=== PATIENT | male | born 1970 | race Caucasian/White ===

== ENCOUNTER 2024-05-11 18:53 | Inpatient (IN) | payer BC, SELFPAY ==
[2024-05-11 18:54] VITALS: BP 146/87; PULSE 82; RESP 16; TEMP 36.5; O2SAT 98; BMI 27.6
[2024-05-11 20:13] LABS: Absolute Lymphocyte Count 0.65 X10^3/uL (0.83-4.51); Absolute Neutrophil Count 8.4 X10^3/uL (2.0-7.7); Basophil# 0.02 X10^3/uL; Basophil% 0.2 % (0-1); Eosinophil# 0.04 X10^3/uL; Eosinophils% 0.4 % (0-5); Hematocrit 50.7 % (40-54); Hemoglobin 17.4 g/dL (13.0-16.5); Lymphocyte # 0.65 X10^3/ul (0.83-4.51); Lymphocyte % 6.7 % (19-41); Mean Corp Hgb Conc 34.3 g/dL (32-36); Mean Corpuscular Hgb 29.1 pg (27.0-32.0); Mean Corpuscular Volume 84.9 fL (80-94); Mean Platelet Vol. 9.2 fl (6.2-12.0); Monocyte# 0.61 X10^3/uL; Monocyte% 6.3 % (0-10); NRBC Flagged by Analyzer 0 % (0-5); Platelet Count 250 K/mm3 (150-450); RBC Distribution Width CV 13.4 % (11.6-14.6); RBC Distribution Width SD 41.7 fl (35.1-43.9); Red Blood Count 5.97 M/mm3 (4.6-6.2); White Blood Count 9.8 K/mm3 (4.4-11.0)
[2024-05-11 20:31] LABS: Color, Urine Amber (Yellow); Glucose, Dipstick Normal (Normal); Ketone-Dipstick 50 mg/dl (Negative); Leukocyte Esterase-Dipstick 25 /ul (Negative); Nitrite-Dipstick Negative (Negative); Occult Blood-Urine 10 /ul (Negative); Protein-Dipstick 15 mg/dl (Negative); Red Blood Cells-Urine 0 SEEN /hpf (0-5); Specific Gravity, Urine 1.025 (1.002-1.030); Urine Clarity Clear (Clear); Urine Urobilinogen 8 mg/dl (Normal)
[2024-05-11 20:41] LABS: Urine Bilirubin Dipstick 3 mg/dL (Negative)
[2024-05-11 20:43] LABS: Bacteria 1+ /hpf (None Seen); Mucous, Urine 1+ /hpf (<or=2+); White Blood Cells 0-5 SEEN /hpf (0-5)
[2024-05-11 20:44] LABS: Squamous Epithelial Cells - UA 0-5 SEEN /hpf (0-5)
[2024-05-11 20:54] VITALS: BP 141/88; PULSE 62
[2024-05-11 20:57] LABS: Glucose 138 mg/dL (74-106)
[2024-05-11 20:58] LABS: ALB/GLOB Ratio 1.3 RATIO (0.9-2.4); AST(SGOT) 184 U/L (15-37); Alanine Aminotransfer ALT/SGPT 596 U/L (16-61); Albumin, Serum 4.5 g/dL (3.2-5.0); Alkaline Phosphatase 73 U/L (45-117); BUN 20 mg/dL (7-18); Calcium,Total 9.9 mg/dL (8.5-10.1); Chloride 105 mmol/L (98-107); Creatinine, Serum 1.05 mg/dL (0.70-1.30); EST Glomerular Filtration Rate 78 mL/min (>60); Est Glom Filt Rate - Afr Amer 95 mL/min (>60); Estimated Creatinine Clearance 87.25 ml/min; Globulin 3.4 g/dL (2.2-4.2); Potassium 4.6 mmol/L (3.5-5.1); Protein, Total 7.9 g/dL (6.4-8.2); Sodium Level 140 mmol/L (136-145)
[2024-05-11 20:59] LABS: Anion Gap 8 (5-15)
--- NOTE | 2024-05-11 21:10 | US_ITS ---
EXAM: US ABDOMEN LIMITED, RIGHT UPPER QUADRANT CLINICAL INDICATION: Pain, elevated bilirubin, transaminitis TECHNIQUE: Real-time ultrasound of the right upper quadrant with image documentation. COMPARISON: No relevant prior studies available. FINDINGS: LIVER: Liver measures 16 point centimeters in length. Echogenic/fatty liver. Largest cysts measure 2.4 cm and 1.6 cm. No solid masses. No intrahepatic biliary ductal dilation. GALLBLADDER: Sonographic Dominguez''s sign is absent. Multiple gallstones are identified. There is evidence of adenomyomatosis. No pericholecystic fluid. Gallbladder wall measures 0.11 cm. COMMON BILE DUCT: Common bile duct measures 5 mm. The proximal common bile duct is within normal limits for the patient''s age. PANCREAS: Visualized portions of the pancreas are unremarkable. Note that the head and tail are not well visualized. RIGHT KIDNEY: Unremarkable. There is no hydronephrosis. No shadowing calculus. No focal lesion or perinephric collection is demonstrated. Right kidney is normal. FREE FLUID: No ascites or masses. US/Gallbladder IMPRESSION: 1. Cholelithiasis and gallbladder wall thickening but no definite acute cholecystitis. 2. Hepatic steatosis suggested. Electronically Signed: Vaibhav Alvarez MD at 22:56 EST ,
--- NOTE | 2024-05-11 21:29 | EDS_ITS ---
HPI HPI - GI History of Present Illness Chief Complaint: Abd Pain Informant: patient Narrative Narrative: Patient is 54-year-old male with history of regular tobacco and prior appendectomy presenting with worsening abdominal pain with nausea and vomiting. Patient states he has had ongoing issues of pain in his upper abdomen. He states normally he take Pepto-Bismol and his symptoms will go away after about 3 hours. He notes that yesterday morning about 2 hours after eating breakfast at home fries, eggs and bowen he had an attack of his pain. He states this is unusual in itself because he usually has pain in the evenings. The pain came back today and is persistent. He notes the night before the big breakfast he ate pizza. Today he had raisin bran and then had vomiting. He has had burning pain in his upper abdomen or upper quadrant that radiates to his back. He feels bloated. Denies any blood in his vomit. States he did not have a bowel movement today. Has never had an EGD or colonoscopy. Has never had this pain e valuated further. Does not take a daily antacid. No fevers reported. No other complaints or concerns reported at this time. Patient denies any alcohol or illicit drug use. PFSH PFS Home Medications ?Medication ?Instructions ?Recorded ?Last Taken ?Type NK 05/12/24 Unknown History Allergy/AdvReac Type Severity Reaction Status Date / Time No Known Allergies Allergy Verified 05/11/24 18:56 Family History no significant family his Surgical History History of appendectomy Social History household members: spouse housing: house Smoking Status: Never smoker ROS ROS ED Constitutional Constitutional ED: Denies chills or fever(s) Gastrointestinal Gastrointestinal: Reports abdominal pain, nausea and vomiting Musculoskeletal Musculoskeletal: Reports back pain; Denies arthralgias or myalgias Integumentary Denies rash Neurologic Neurologic: Denies weakness EXAM Physical Exam Const Vital Signs: 05/11/24 18:54 05/11/24 20:54 05/11/24 22:00 Temperature 97.7 F L Temperature Source Oral Pulse Rate 82 62 Respiratory Rate 16 Blood Pressure 146/87 H 141/88 H 148/85 H Blood Pressure Mean 106 105 106 Pulse Ox 98 Oxygen Delivery Method Room Air 05/12/24 00:00 05/12/24 00:04 Temperature 98.7 F 98.7 F Temperature Source Oral Pulse Rate 98 98 Respiratory Rate 18 18 Blood Pressure 144/87 H 144/87 H Blood Pressure Mean 106 106 Pulse Ox 99 99 Oxygen Delivery Method Room Air Positive well nourished and well developed General Appearance ED: well developed; Negative for pallor HEENT Reports moist mucous membranes Eyes PERRL Neck supple Resp normal respiratory effort and clear to auscultation bilaterally Cardio regular rate and regular rhythm GI non-distended Auscultation: hypoactive bowel sounds Palpation: soft and tender epigastric, RUQ and Dominguez's sign; Negative for guarding or rigid Extremity full ROM General Extremety ED: Negative for edema General Extremity: Negative for edema Neuro Sensorium / Orientation: alert, oriented to person, oriented to place and oriented to time Motor Exam: Negative for general weakness Psych mental status grossly normal and thought process normal Skin General Skin Exam: Negative for jaundice or pallor MDM MDM MDM Narrative Medical decision making narrative: Patient's evaluated for worsening upper abdominal pain. Is now having nausea and vomiting with it. Differential includes cholecystitis, pancreatitis, choledocholithiasis, biliary colic, small bowel obstruction, gastritis and peptic ulcer disease. Protocol labs obtained including CBC, CMP and urinalysis. Lipase is added on. CBC largely normal however his CMP shows an elevation of his total bilirubin, AST, and ALT which is concerning for possible obstructive biliary pathology. Lipase is pending at this time. Right upper quadrant ultrasound is ordered as well as morphine and Zofran for symptom control. Will keep n.p.o. at this time. Lipase is significant elevated at greater than 250. Ultrasound shows cholelithiasis and gallbladder wall thickening but no definite acute cholecystitis. CT of abdomen pelvis is added on for concern of now gallstone pancreatitis. Discussed his clinical picture. Patient does require further morphine for pain control. Will be started on IV fluids in the ER. Case is discussed with Dr. Box, general surgery on-call. He is agreeable with this plan recommend starting Zosyn. Request admission to medicine service and GI consult as well. Patient will be admitted to medicine service and case discussed with hospitalist, Dr. Powers. Patient is agreeable this plan of care. Remains hemodynamically stable emergency room. Lab Data Attestation: I reviewed the patient's lab results. Labs: Laboratory Results - last 24 hr 05/11/24 05/11/24 20:03 20:07 WBC 9.8 RBC 5.97 Hgb 17.4 H Hct 50.7 MCV 84.9 MCH 29.1 MCHC 34.3 RDW Std Deviation 41.7 RDW Coeff of Judy 13.4 Plt Count 250 MPV 9.2 Immature Gran % (Auto) 0.400 Neut % (Auto) 86.0 H Lymph % (Auto) 6.7 L [place] % (Auto) 6.3 Eos % (Auto) 0.4 Baso % (Auto) 0.2 Absolute Neuts (auto) 8.4 H Absolute Lymphs (auto) 0.65 L Nucleated RBC % 0 Sodium 140 Potassium 4.6 Chloride 105 Carbon Dioxide 27.0 Anion Gap 8 BUN 20 H Creatinine 1.05 Estim Creat Clear Calc 87.25 Est GFR (MDRD) Af Amer 95 Est GFR (MDRD) Non-Af 78 BUN/Creatinine Ratio 19.0 Glucose 138 H Calcium 9.9 Total Bilirubin 3.70 H AST 184 H ALT 596 H Alkaline Phosphatase 73 Total Protein 7.9 Albumin 4.5 Globulin 3.4 Albumin/Globulin Ratio 1.3 Lipase > 250 H Urine Color Richa Urine Clarity Clear Urine pH 5.0 Ur Specific Pierce 1.025 Urine Protein 15 H Urine Glucose (UA) Normal Urine Ketones 50 H Urine Occult Blood 10 H Urine Nitrite Negative Urine Bilirubin 3 H Urine Urobilinogen 8 H Ur Leukocyte Esterase 25 H Urine RBC 0 SEEN Urine WBC 0-5 SEEN Ur Squamous Epith Cells 0-5 SEEN Urine Bacteria 1+ Urine Mucus 1+ Radiography Diagnostic Testing: Clinical Impression(s) from Imaging Studies Gallbladder Ultrasound 05/11/24 21:10 IMPRESSION: 1. Cholelithiasis and gallbladder wall thickening but no definite acute cholecystitis. 2. Hepatic steatosis suggested. Electronically Signed: Vaibhav Alvarez MD at 22:56 EST , Discharge Plan Dx/Rx/DC Orders Clinical Impression: Acute gallstone pancreatitis, Elevated bilirubin, Abdominal pain, acute, epigastric Disposition Disposition: [facility]
[2024-05-11] MEDS: Ondansetron 4 MG/2 ML Vial IV (21:38)
[2024-05-11] MEDS: morphine 8 MG/ML Syringe 6 MG IV (21:38)
[2024-05-11 21:48] LABS: Lipase > 250 U/L (13-75)
[2024-05-11 22:00] VITALS: BP 148/85
--- NOTE | 2024-05-11 22:44 | CT_ITS ---
EXAM: CT ABDOMEN AND PELVIS WITH INTRAVENOUS CONTRAST CLINICAL INDICATION: Pain, elevated lipase TECHNIQUE: Helically acquired images were obtained of the abdomen and pelvis with intravenous contrast. CTDIvol = ( 19.53 ) mGy, DLP = ( 1342.79 ) mGycm This CT exam was performed using one or more of the following dose reduction techniques: automated exposure control, adjustment of the mA and/or kV according to patient size, and/or use of iterative reconstruction technique. CONTRAST: IV 100mL Isovue-370 COMPARISON: No relevant prior studies available. FINDINGS: LOWER THORAX: Dependent atelectasis at the posterior lower lobes. ABDOMEN: LIVER: Scattered hepatic cysts. GALLBLADDER AND BILE DUCTS: Distended gallbladder. Cholelithiasis. No acute cholecystitis. No intra- or extrahepatic biliary ductal dilation. PANCREAS: Edematous pancreatic parenchyma with adjacent stranding. No focal cystic or solid mass. No peripancreatic collections. SPLEEN: Unremarkable. Normal size without focal cystic or solid mass. ADRENALS: Unremarkable. No nodules. KIDNEYS AND URETERS: Unremarkable. Normal renal size and position. No hydronephrosis. STOMACH AND BOWEL: Diverticulosis but no acute diverticulitis. No bowel obstruction. No colitis. PELVIS: APPENDIX: No evidence of acute appendicitis. BLADDER: Unremarkable. REPRODUCTIVE: Unremarkable as visualized. No mass. ABDOMEN and PELVIS: INTRAPERITONEAL SPACE: Unremarkable. No ascites or other fluid collection. No free air. 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 No suspicious lytic or blastic abnormality. SOFT TISSUES: Unremarkable. No discrete abdominal or pelvic wall hernia. VASCULATURE: Unremarkable. Abdominal aorta is non-dilated. LYMPH NODES: Unremarkable. No enlarged lymph nodes. CT/Abdomen/Pelvis W IV Cont ONLY IMPRESSION: Acute pancreatitis without complications. Electronically Signed: Vaibhav Alvarez MD at 0:23 EST ,
--- NOTE | 2024-05-11 23:54 | HP.PCM.HOS_ITS ---
[facility] - General General Date of Admission: 05/12/24 Date of Service: 05/11/24 Chief Complaint: Abdominal Pain, Nausea and Vomiting. HPI Narrative KIMBERLEE NAVARRO, is a 54 M with a past medical history of tobacco abuse, being overweight; with BMI of 27.7 this admission, history of appendectomy and chronic intermittent postprandial abdominal pain that is typically most active in the evenings who presents to [facility] ER complaining of abdominal pain, nausea and vomiting. Mr. Navarro reports his symptoms began approximately one day prior to admission after he ate a large breakfast with subsequent severe abdominal pain that was burning, focused in his upper abdomen and radiating into his back. He also noted abdominal bloating followed by nausea and vomiting with no BM for the past ~24 hours. He states he normally takes Pepto-Bismol and the symptoms resolve after ~3 hours - but not this time. Earlier today he reports eating Raisin Bran cereal and then he developed severe nausea followed by bilious emesis. He denies blood in stools or vomitus. He asserts he has never underwent an EGD or colonoscopy. He denies associated fever, chills, diarrhea, history of EtOH abuse, chest pain or SOB. In the ER he was noted to have CT evidence of cholelithiasis and gallbladder wall thickening with no definite acute cholecystitis along with hepatic steatosis along with laboratory evidence of hyperbilirubinemia of 3.7 mg/dL with AST 184 U/L and ALT 596 U/L with an elevated serum lipase > 250 U/L consistent with suspected Acute Gallstone Pancreatitis complicated by clinical evidence of Intractable Abdominal Pain with Nausea and Vomiting and he was then admitted to the general medical floor for ongoin care for a stay that is expected to extend beyond 2 midnights. [facility] Home Medications ?Medication ?Instructions ?Recorded ?Last Taken ?Type NK 05/12/24 Unknown History Allergy/AdvReac Type Severity Reaction Status Date / Time No Known Allergies Allergy Verified 05/11/24 18:56 Family History no significant family his Surgical History History of appendectomy Social History household members: spouse housing: house Smoking Status: Current every day smoker tobacco type: cigarettes ROS ROS Narrative Review of Systems: Constitutional: Patient denies fever or chills. Eyes: Patient denies changes in vision or discharge from eyes. ENT: Patient denies runny nose, sore throat or ear pain. Resp: Patient denies SOB or cough. CV: Patient denies chest pain, palpitations or heart racing. GI: Patient admits to severe burning abdominal pain with nausea and vomiting with bilious emesis as per HPI. : Patient denies dysuria or hematuria. MSK: Patient admits to back pain but he denies arthralgias or myalgias. Skin: Patient denies rash or abscess. Psych: Patient denies symptoms of uncontrolled depression or anxiety. Neuro: Patient denies headache, paresthesias or focal neurologic deficits. Allergy: Patient denies lip swelling, tongue swelling or urticaria. Hematology: Patient denies easy bleeding or easy bruisability. Endocrinology: Patient denies polyuria, polydipsia or polyphagia. 14 point ROS otherwise negative except for positives noted above. Vital Signs Vital Signs Vital Signs: 05/11/24 18:54 05/11/24 20:54 05/11/24 22:00 Temperature 97.7 F L Temperature Source Oral Pulse Rate 82 62 Respiratory Rate 16 Blood Pressure 146/87 H 141/88 H 148/85 H Blood Pressure Mean 106 105 106 Pulse Ox 98 Oxygen Delivery Method Room Air Weight Weight: 204 lb 1.6 oz Body Mass Index (BMI) 27.6 Physical Exam Const alert, oriented x3 and average body habitus Constitutional Narrative: [id number] discomfort noted. General Appearance: cooperative HEENT normocephalic, head/scalp atraumatic, hearing grossly normal bilaterally and moist oral mucous membranes Eyes PERRL and EOMs intact bilaterally Neck no lymphadenopathy and supple Resp normal respiratory effort, no retractions, no use of accessory muscles and clear to auscultation bilaterally Cardio regular rate and regular rhythm GI soft to palpation GI Narrative: Patient is TTP over the epigastrium. Auscultation: hypoactive bowel sounds Extremity normal to inspection, full ROM and no clubbing, cyanosis or edema Skin Skin Narrative: Patient has no evidence of rash, abscess or jaundice at this time. Neuro oriented x3, CN's II-XII intact bilaterally, moves all extremities and no focal motor deficits Sensorium / Orientation: awake, alert, oriented to person, oriented to place and oriented to time Speech: speech normal Psych affect normal Results Medical Records Data Attestation: I reviewed the patient's medical records Lab / Micro Data Attestation: I reviewed the patient's lab results. 05/11/24 20:03 05/11/24 20:03 Labs: Laboratory Results - last 24 hr 05/11/24 20:03: WBC 9.8, RBC 5.97, Hgb 17.4 H, Hct 50.7, MCV 84.9, MCH 29.1, MCHC 34.3, RDW Std Deviation 41.7, RDW Coeff of Judy 13.4, Plt Count 250, MPV 9.2, Immature Gran % (Auto) 0.400, Neut % (Auto) 86.0 H, Lymph % (Auto) 6.7 L, [place] % (Auto) 6.3, Eos % (Auto) 0.4, Baso % (Auto) 0.2, Absolute Neuts (auto) 8.4 H, Absolute Lymphs (auto) 0.65 L, Nucleated RBC % 0, Sodium 140, Potassium 4.6, Chloride 105, Carbon Dioxide 27.0, Anion Gap 8, BUN 20 H, Creatinine 1.05, Estim Creat Clear Calc 87.25, Est GFR (MDRD) Af Amer 95, Est GFR (MDRD) Non-Af 78, BUN/Creatinine Ratio 19.0, Glucose 138 H, Calcium 9.9, Total Bilirubin 3.70 H, AST 184 H, ALT 596 H, Alkaline Phosphatase 73, Total Protein 7.9, Albumin 4.5, Globulin 3.4, Albumin/Globulin Ratio 1.3, Lipase > 250 H 05/11/24 20:07: Urine Color Richa, Urine Clarity Clear, Urine pH 5.0, Ur Specific [place] 1.025, Urine Protein 15 H, Urine Glucose (UA) Normal, Urine Ketones 50 H, Urine Occult Blood 10 H, Urine Nitrite Negative, Urine Bilirubin 3 H, Urine Urobilinogen 8 H, Ur Leukocyte Esterase 25 H, Urine RBC 0 SEEN, Urine WBC 0-5 SEEN, Ur Squamous Epith Cells 0-5 SEEN, Urine Bacteria 1+, Urine Mucus 1+ Imaging Radiology Impression Gallbladder Ultrasound 05/11/24 21:10 IMPRESSION: 1. Cholelithiasis and gallbladder wall thickening but no definite acute cholecystitis. 2. Hepatic steatosis suggested. Electronically Signed: Vaibhav Alvarez MD at 22:56 EST , - [facility] Imaging Services [address] [place] [address] [id number] Abdomen/Pelvis W IV Cont ONLY MR#: [id number] Acct: [id number] Name: KIMBERLEE NAVARRO Rep #: [id number] : 1970 M 54 From: Vaibhav Alvarez MD PCP: Dr. Ifeanyi Laurent MD Status: ADM IN Study: Abdomen/Pelvis W IV Cont ONLY Date of Exam: 05/11/24 Exam# [id number] Ordering Dr: Joelle Albright DO EXAM: CT ABDOMEN AND PELVIS WITH INTRAVENOUS CONTRAST CLINICAL INDICATION: Pain, elevated lipase TECHNIQUE: Helically acquired images were obtained of the abdomen and pelvis with intravenous contrast. CTDIvol = ( 19.53 ) mGy, DLP = ( 1342.79 ) mGycm This CT exam was performed using one or more of the following dose reduction techniques: automated exposure control, adjustment of the mA and/or kV according to patient size, and/or use of iterative reconstruction technique. CONTRAST: IV 100mL Isovue-370 COMPARISON: No relevant prior studies available. FINDINGS: LOWER THORAX: Dependent atelectasis at the posterior lower lobes. ABDOMEN: LIVER: Scattered hepatic cysts. GALLBLADDER AND BILE DUCTS: Distended gallbladder. Cholelithiasis. No acute cholecystitis. No intra- or extrahepatic biliary ductal dilation. PANCREAS: Edematous pancreatic parenchyma with adjacent stranding. No focal cystic or solid mass. No peripancreatic collections. SPLEEN: Unremarkable. Normal size without focal cystic or solid mass. ADRENALS: Unremarkable. No nodules. KIDNEYS AND URETERS: Unremarkable. Normal renal size and position. No hydronephrosis. STOMACH AND BOWEL: Diverticulosis but no acute diverticulitis. No bowel obstruction. No colitis. PELVIS: APPENDIX: No evidence of acute appendicitis. BLADDER: Unremarkable. REPRODUCTIVE: Unremarkable as visualized. No mass. ABDOMEN and PELVIS: INTRAPERITONEAL SPACE: Unremarkable. No ascites or other fluid collection. No free air. 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 No suspicious lytic or blastic abnormality. SOFT TISSUES: Unremarkable. No discrete abdominal or pelvic wall hernia. VASCULATURE: Unremarkable. Abdominal aorta is non-dilated. LYMPH NODES: Unremarkable. No enlarged lymph nodes. CT/Abdomen/Pelvis W IV Cont ONLY IMPRESSION: Acute pancreatitis without complications. Electronically Signed: Vaibhav Alvarez MD at 0:23 EST , CC: Dr. Joelle Albright, DO; Dr. Ifeanyi Laurent MD ~ Catalogue Clerk: Signed Assessment & Plan Assessment/Plan (1) Acute gallstone pancreatitis: (2) Elevated bilirubin: (3) Transaminitis: (4) Intractable abdominal pain: (5) Intractable nausea and vomiting: (6) Tobacco abuse: (7) Polycythemia: (8) Overweight (BMI 25.0-29.9): PLAN: Plan 1. Acute Gallstone Pancreatitis - Admit to general medical floor. Keep strict NPO and start Protonix IV. Give Zofran IV prn nausea and vomiting. Give Toradol IV prn for [id number] (level 1-5/10) pain or fever. Give Morphine IV prn for severe (level 6-10/10) pain. Finally, we will consult gastroenterology to see this patient on-rounds in the AM for recommendations regarding ERCP with help appreciated in advance. 2. Hyperbilirubinemia of 3.7 mg/dL and Transaminitis; with AST 184 U/L and ALT 596 U/L present on admission arising from #1 - Check daily CMP to follow trend. 3. Intractable Abdominal Pain with Nausea and Vomiting with bilious emesis attributable to #1 & #2 - Give Phenergan IM prn for breakthrough nausea. Follow pain regimen as outlined above in #1. 4. Tobacco Abuse adding to the burden of disease outlined from #1- #3 - Tobacco Cessation will be strongly encouraged with Nicotine patch offered to control cravings. 5. Mild Polycythemia with hemoglobin of of 17.4 g/dL present on admission - Likely due to #4. Volume resuscitate and recheck CBC in AM. 6. Overweight; with BMI of 27.7 this admission - Weight loss will be recommended. Check TSH. 7. History of appendectomy - Noted. 8. DVT prophylaxis - SCD's only with impending ERCP. Total time: Approximately (but not less than) 75 minutes. Charges/Coding Visit Charges Inpatient E&M: 42133 Init Hosp L3
[2024-05-12] VITALS (17 sets, daily range): BP systolic 104–148; BP diastolic 67–98; PULSE 58–98; RESP 14–18; TEMP 36.2–37.1; O2SAT 93–99; BMI 27.7
[2024-05-12] MEDS: 0.9% Normal Saline (1000mL) 1,000 ML 150 ML IV
[2024-05-12] MEDS: Morphine 4 MG/ML Syringe IV (00:01)
[2024-05-12] MEDS: Piperacil/Tazobactam 3.375 GM in 0.9% Normal Saline (50mL MB+) 50 ML IV ×4 (00:10→21:09)
[2024-05-12] MEDS: Morphine 2 MG/ML Syringe IV ×3 (01:23→11:23)
[2024-05-12] MEDS: Pantoprazole Sodium 40 MG in 0.9% Normal Saline (100mL MB+) 100 ML 330 MG IV (05:42)
--- NOTE | 2024-05-12 06:00 | EKG12_ITS ---
Test Reason : MORNING EKG Blood Pressure : */* mmHG Vent. Rate : 58 BPM Atrial Rate : 58 BPM P-R Int : 142 ms QRS Dur : 88 ms QT Int : 420 ms P-R-T Axes : 47 10 18 degrees QTcB Int : 412 ms Sinus bradycardia Otherwise normal ECG When compared with ECG of 08-Feb-2002 11:15, [place] interval has increased Vent. rate has decreased by 89 bpm Questionable change in QRS axis Confirmed by Kvng Judge ([id number]), acquisitions editor RAYMOND NAQVI ([id number]) on 05/12/2024 1:11:26 PM Referred By: RODRIGUEZ Confirmed By: Kvng Judge
[2024-05-12 06:35] LABS: Absolute Neutrophil Count 10.5 X10^3/uL (2.0-7.7); Basophil# 0.02 X10^3/uL; Basophil% 0.2 % (0-1); Eosinophil# 0.04 X10^3/uL; Eosinophils% 0.3 % (0-5); Hematocrit 47.9 % (40-54); Hemoglobin 16.3 g/dL (13.0-16.5); Lymphocyte % 8.1 % (19-41); Mean Corpuscular Hgb 29.2 pg (27.0-32.0); Mean Corpuscular Volume 85.7 fL (80-94); Mean Platelet Vol. 9.7 fl (6.2-12.0); Monocyte# 0.79 X10^3/uL; Monocyte% 6.4 % (0-10); NRBC Flagged by Analyzer 0 % (0-5); Neutrophil # 10.48 X10^3/uL (2.7-7.7); Neutrophil % 84.5 % (47-70); Platelet Count 240 K/mm3 (150-450); RBC Distribution Width CV 13.7 % (11.6-14.6); RBC Distribution Width SD 42.4 fl (35.1-43.9); Red Blood Count 5.59 M/mm3 (4.6-6.2); White Blood Count 12.4 K/mm3 (4.4-11.0)
[2024-05-12 07:06] LABS: ALB/GLOB Ratio 1.1 RATIO (0.9-2.4); AST(SGOT) 90 U/L (15-37); Alanine Aminotransfer ALT/SGPT 452 U/L (16-61); Albumin, Serum 3.8 g/dL (3.2-5.0); Alkaline Phosphatase 64 U/L (45-117); Anion Gap 5 (5-15); BUN 21 mg/dL (7-18); BUN/Creat Ratio 23.3 RATIO (10-20); Calcium,Total 9.3 mg/dL (8.5-10.1); Chloride 106 mmol/L (98-107); EST Glomerular Filtration Rate 93 mL/min (>60); Est Glom Filt Rate - Afr Amer 113 mL/min (>60); Estimated Creatinine Clearance 101.79 ml/min; Globulin 3.4 g/dL (2.2-4.2); Glucose 118 mg/dL (74-106); Magnesium 1.9 mg/dL (1.6-2.6); Phosphorus 3.6 mg/dL (2.5-4.9); Potassium 3.7 mmol/L (3.5-5.1); Protein, Total 7.2 g/dL (6.4-8.2); Sodium Level 139 mmol/L (136-145)
[2024-05-12 07:32] LABS: Lipase 988 U/L (13-75)
--- NOTE | 2024-05-12 10:40 | CASEMGMT ---
ALISSA HUBER Assessment: Face to Face with pt for initial transition planning/care coordination assessment. ALISSA HUBER introduced self and role at [facility], pt voices understanding and consents to assessment. Pt is A&O x4 and answers all questions appropriately at this time. Pt lying in bed in no distress with at bedside. Care providers, pharmacy, and demographics verified/updated. Admitting Dx: acute gallstone pancreatitis Strata Score: 1 PCP:Mehran Specialists:Denies Preferred Pharmacy:[facility] Retail Insurance: [employer] Prescription Benefit: yes LNOK: Lacey Moore, Living Arrangements: Pt lives with in a two story home with 2 steps to enter. Pt reports he is I in ADLs and denies concerns at home. Transportation: Pt drives self and denies concerns with transportation. DME:Denies HHC/SNF: Denies hx of Pt states no concerns with going home at time of dc. Pt states he smokes a 1/2 pack of cigarettes per day, denies alcohol or drug use. Pt states no further concerns/needs. CM to follow. Advised pt to ask CM if any further question/concerns/needs arise, voices understanding. Pt Goal:Home Plan: Home Piero [facility]WELL CM
--- NOTE | 2024-05-12 10:51 | CON.PCM.SX_ITS ---
Assessment & Plan Assessment/Plan (1) Acute gallstone pancreatitis: PLAN: The patient has acute pancreatitis for possible cholecystitis. Patient had ultrasound which showed thickening of the wall of the gallbladder and multiple gallstones and he had a CT scan that showed dilation of the bile ducts. LFTs are also elevated. I discussed this with him in detail. I discussed the plan for ERCP possibly today and laparoscopic cholecystectomy on Friday after the pancreatitis subsides. I discussed the procedure in detail with the patient. I discussed the risks, benefits, and alternatives of the procedure. I discussed the risks including but not limited to bleeding, infection, injury to surrounding organs such as the liver, bile duct, bowels. I did discuss the possibility of having to convert to an open procedure as well as the possibility that if any injuries occurred this may necessitate further surgery at a tertiary care center. Plan for surgery Friday at 9 AM. Franklin Lopez MD Pager: [facility] [address] [place] [address], [address] [place] [address] Office: HPI Consult Data Date of Consult: 05/12/24 HPI Narrative HPI Narrative: KIMBERLEE NAVARRO, is a 54 M who presents for abdominal pain. The pain has been happening for a day and has not stopped. He says he has had episodes of this pain off and on but they usually go away. He did have some nausea and vomiting. Pain is in the epigastric region. Denies fevers or chills. [facility] Home Medications ?Medication ?Instructions ?Recorded ?Last Taken ?Type NK 05/12/24 Unknown History Allergy/AdvReac Type Severity Reaction Status Date / Time No Known Allergies Allergy Verified 05/11/24 18:56 Family History no significant family his Surgical History History of appendectomy Social History household members: spouse housing: house Smoking Status: Current every day smoker tobacco type: cigarettes ROS Constitutional Constitutional: Denies anorexia, chills, fatigue or fever(s) Eyes Eyes: Denies blurry vision ENT HEENT: Denies abnormal hearing Cardiovascular Cardiovascular: Denies chest pain Respiratory/Chest Respiratory/Chest: Denies cough or dyspnea Gastrointestinal Gastrointestinal: Reports abdominal pain and nausea; Denies coffee ground emesis or vomiting Genitourinary Genitourinary: Denies change in urinary stream or dysuria Musculoskeletal Musculoskeletal: Denies abnormal gait or back pain Integumentary Integumentary: Denies jaundice or new lesions Neurologic Neurologic: Denies abnormal gait or dizziness Psychiatric Psychiatric: Denies anxiety or depression Physical Exam Const alert and oriented x3 HEENT normocephalic Eyes PERRL Resp normal respiratory effort Cardio Rate: regular rate Rhythm: regular rhythm GI soft to palpation Palpation: tender epigastric Extremity normal to inspection Lab / Micro Data 05/12/24 05:51 05/12/24 05:51 Labs: Laboratory Results - last 24 hr 05/11/24 20:03: WBC 9.8, RBC 5.97, Hgb 17.4 H, Hct 50.7, MCV 84.9, MCH 29.1, MCHC 34.3, RDW Std Deviation 41.7, RDW Coeff of Judy 13.4, Plt Count 250, MPV 9.2, Immature Gran % (Auto) 0.400, Neut % (Auto) 86.0 H, Lymph % (Auto) 6.7 L, Swain % (Auto) 6.3, Eos % (Auto) 0.4, Baso % (Auto) 0.2, Absolute Neuts (auto) 8.4 H, Absolute Lymphs (auto) 0.65 L, Nucleated RBC % 0, Sodium 140, Potassium 4.6, Chloride 105, Carbon Dioxide 27.0, Anion Gap 8, BUN 20 H, Creatinine 1.05, Estim Creat Clear Calc 87.25, Est GFR (MDRD) Af Amer 95, Est GFR (MDRD) Non-Af 78, BUN/Creatinine Ratio 19.0, Glucose 138 H, Calcium 9.9, Total Bilirubin 3.70 H, AST 184 H, ALT 596 H, Alkaline Phosphatase 73, Total Protein 7.9, Albumin 4.5, Globulin 3.4, Albumin/Globulin Ratio 1.3, Lipase > 250 H 05/11/24 20:07: Urine Color Richa, Urine Clarity Clear, Urine pH 5.0, Ur Specific [place] 1.025, Urine Protein 15 H, Urine Glucose (UA) Normal, Urine Ketones 50 H, Urine Occult Blood 10 H, Urine Nitrite Negative, Urine Bilirubin 3 H, Urine Urobilinogen 8 H, Ur Leukocyte Esterase 25 H, Urine RBC 0 SEEN, Urine WBC 0-5 SEEN, Ur Squamous Epith Cells 0-5 SEEN, Urine Bacteria 1+, Urine Mucus 1+ 05/12/24 05:51: WBC 12.4 H, RBC 5.59, Hgb 16.3, Hct 47.9, MCV 85.7, MCH 29.2, MCHC 34.0, RDW Std Deviation 42.4, RDW Coeff of Judy 13.7, Plt Count 240, MPV 9.7, Immature Gran % (Auto) 0.500, Neut % (Auto) 84.5 H, Lymph % (Auto) 8.1 L, Swain % (Auto) 6.4, Eos % (Auto) 0.3, Baso % (Auto) 0.2, Absolute Neuts (auto) 10.5 H, Absolute Lymphs (auto) 1.00, Nucleated RBC % 0, Sodium 139, Potassium 3.7, Chloride 106, Carbon Dioxide 28.0, Anion Gap 5, BUN 21 H, Creatinine 0.90, Estim Creat Clear Calc 101.79, Est GFR (MDRD) Af Amer 113, Est GFR (MDRD) Non-Af 93, BUN/Creatinine Ratio 23.3 H, Glucose 118 H, Calcium 9.3, Phosphorus 3.6, Magnesium 1.9, Total Bilirubin 2.10 H, AST 90 H, ALT 452 H, Alkaline Phosphatase 64, Total Protein 7.2, Albumin 3.8, Globulin 3.4, Albumin/Globulin Ratio 1.1, L ipase 988 H, TSH 1.190 Imaging Radiology Impression Gallbladder Ultrasound 05/11/24 21:10 IMPRESSION: 1. Cholelithiasis and gallbladder wall thickening but no definite acute cholecystitis. 2. Hepatic steatosis suggested. Electronically Signed: Vaibhav Alvarez MD at 22:56 EST , Abdomen/Pelvis CT 05/11/24 22:44 IMPRESSION: Acute pancreatitis without complications. Electronically Signed: Vaibhav Alvarez MD at 0:23 EST ,
[2024-05-12] MEDS: 0.9% Saline Lock 10 ML Syringe IV ×2 (11:23→21:23)
--- NOTE | 2024-05-12 13:38 | PN_ITS ---
Subjective Subjective Patient seen and examined. He still complain of some mild pain though he said it had improved. He is currently NPO. Review of symptoms otherwise negative. He has remained hemodynamically stable. Objective Data Objective Data Vital Signs: Vital Signs Temp Pulse Resp BP Pulse Ox O2 Del Method 98 F 74 18 131/85 H 97 Room Air 05/12/24 08:00 05/12/24 08:00 05/12/24 08:00 05/12/24 08:00 05/12/24 08:00 05/12/24 08:00 Oxygen Delivery Method Room Air Weight: 204 lb 9.423 oz Body Mass Index (BMI) 27.7 Intake & Output: Intake and Output for Last 24 Hours 05/10/24 05/11/24 05/12/24 23:59 23:59 23:59 Intake Total 1210 / 1210 Balance 1210 / 1210 Lab / Micro Data 05/12/24 05:51 05/12/24 05:51 Labs: Laboratory Results - last 24 hr 05/11/24 20:03: WBC 9.8, RBC 5.97, Hgb 17.4 H, Hct 50.7, MCV 84.9, MCH 29.1, MCHC 34.3, RDW Std Deviation 41.7, RDW Coeff of Judy 13.4, Plt Count 250, MPV 9.2, Immature Gran % (Auto) 0.400, Neut % (Auto) 86.0 H, Lymph % (Auto) 6.7 L, [place] % (Auto) 6.3, Eos % (Auto) 0.4, Baso % (Auto) 0.2, Absolute Neuts (auto) 8.4 H, Absolute Lymphs (auto) 0.65 L, Nucleated RBC % 0, Sodium 140, Potassium 4.6, Chloride 105, Carbon Dioxide 27.0, Anion Gap 8, BUN 20 H, Creatinine 1.05, Estim Creat Clear Calc 87.25, Est GFR (MDRD) Af Amer 95, Est GFR (MDRD) Non-Af 78, BUN/Creatinine Ratio 19.0, Glucose 138 H, Calcium 9.9, Total Bilirubin 3.70 H, AST 184 H, ALT 596 H, Alkaline Phosphatase 73, Total Protein 7.9, Albumin 4.5, Globulin 3.4, Albumin/Globulin Ratio 1.3, Lipase > 250 H 05/11/24 20:07: Urine Color Richa, Urine Clarity Clear, Urine pH 5.0, Ur Specific [place] 1.025, Urine Protein 15 H, Urine Glucose (UA) Normal, Urine Ketones 50 H, Urine Occult Blood 10 H, Urine Nitrite Negative, Urine Bilirubin 3 H, Urine Urobilinogen 8 H, Ur Leukocyte Esterase 25 H, Urine RBC 0 SEEN, Urine WBC 0-5 SEEN, Ur Squamous Epith Cells 0-5 SEEN, Urine Bacteria 1+, Urine Mucus 1+ 05/12/24 05:51: WBC 12.4 H, RBC 5.59, Hgb 16.3, Hct 47.9, MCV 85.7, MCH 29.2, MCHC 34.0, RDW Std Deviation 42.4, RDW Coeff of Judy 13.7, Plt Count 240, MPV 9.7, Immature Gran % (Auto) 0.500, Neut % (Auto) 84.5 H, Lymph % (Auto) 8.1 L, [place] % (Auto) 6.4, Eos % (Auto) 0.3, Baso % (Auto) 0.2, Absolute Neuts (auto) 10.5 H, Absolute Lymphs (auto) 1.00, Nucleated RBC % 0, Sodium 139, Potassium 3.7, Chloride 106, Carbon Dioxide 28.0, Anion Gap 5, BUN 21 H, Creatinine 0.90, Estim Creat Clear Calc 101.79, Est GFR (MDRD) Af Amer 113, Est GFR (MDRD) Non-Af 93, BUN/Creatinine Ratio 23.3 H, Glucose 118 H, Calcium 9.3, Phosphorus 3.6, Magnesium 1.9, Total Bilirubin 2.10 H, AST 90 H, ALT 452 H, Alkaline Phosphatase 64, Total Protein 7.2, Albumin 3.8, Globulin 3.4, Albumin/Globulin Ratio 1.1, L ipase 988 H, TSH 1.190 Radiography Diagnostic Testing: Radiology Impression Gallbladder Ultrasound 05/11/24 21:10 IMPRESSION: 1. Cholelithiasis and gallbladder wall thickening but no definite acute cholecystitis. 2. Hepatic steatosis suggested. Electronically Signed: Vaibhav Alvarez MD at 22:56 EST , Abdomen/Pelvis CT 05/11/24 22:44 IMPRESSION: Acute pancreatitis without complications. Electronically Signed: Vaibhav Alvarez MD at 0:23 EST , Physical Exam Const alert, oriented x3 and no apparent distress General Appearance: cooperative and well developed HEENT normocephalic, head/scalp atraumatic and moist oral mucous membranes Eyes PERRL and EOMs intact bilaterally Neck no lymphadenopathy, supple and no JVD Lymph Lymphatic: no lymphadenopathy noted and no lymphedema noted Resp normal respiratory effort, normal air movement and clear to auscultation bilaterally Cardio regular rate, regular rhythm, S1 normal heart sound, S2 normal heart sound and no murmurs GI normal to inspection, nondistended, normoactive bowel sounds and soft to palpation GI Narrative: mild epigastric tenderness, no guarding or rebound tenderness. Extremity normal capillary refill, no clubbing, cyanosis or edema and no calf tenderness General Extremity: no tenderness to palpation of joints or extremities Skin General Skin Exam: no breakdown Neuro CN's II-XII intact bilaterally, no focal motor deficits and no sensory deficits noted Coordination / Balance: [id number] test normal Motor Exam: strength 5/5 throughout and general weakness Psych thought process normal and cooperative Appearance: appropriate Assessment & Plan Assessment/Plan (1) Intractable nausea and vomiting: (2) Acute gallstone pancreatitis: PLAN: Plan #Acute gallstone pancreatitis * still abdominal pain, but says he is feeling better due to the pain meds. * CT of the abdomen showed evidence of acute pancreatitis, with gallstones * currently NPO * GI on board. General surgeyr also consulted; for laparoscopy on Friday. * on PO tylenol, IV morphine prn for pain. * IV Zofran as needed * Continue hydration with IV fluids. Lipase is up to 988 today. * Gallbladder ultrasound showed cholelithiasis and gallbladder wall thickening but no definite acute cholecystitis. * on IV zosyn * # Hyperbilirubinemia: * Bilirubin was 3.7 on admission and is now down to 2.1. AST and ALT have trended downwards. * Likely due to acute gallstone pancreatitis. * Will trend. #Abnormal urinalysis: * Urine bacteria showed 1+ bacteria and negative nitrites but leukocyte esterase of 25. * already on IV zosyn * urine cultures ordered. #Nicotine dependence: Counseled to quit. Nicotine patch 21 mg daily # DVT Prophylaxis: SCDs Charges/Coding Visit Charges Inpatient E&M: 85326 Subs Hosp L2
--- NOTE | 2024-05-12 15:17 | PRE.ANES_ITS ---
ASA Classification* ASA Classification ASA Classification: 2 Assessment & Plan Anesthesia* Anesthesia Assessment Anesthesia Assessment: Discussed sedation and/or anesthesia options, risks, benefits, and alternatives with patient/parents/legal guardian/POA. Questions invited. The patient/parents/legal guardian/POA seems to understand and agrees to proceed with anesthesia plan. Reviewed the physical assessment, medical history, allergy history and patient home medications list prior to surgery/procedure/anesthetic and documented any changes. Performed airway and anesthesia risk assessments. Anesthesia Type Anesthesia Type: General History Source History Obtained from:: Patient and Chart Anesthesia Focused Assessment* Temperature: 98.2 F Pulse Rate: 82 Blood Pressure: 116/92 Respiratory Rate: 18 Pulse Ox: 97 Oxygen Delivery Method: Room Air Airway Assessment Mouth opens: >3 cm Mallampati Score: III Teeth Condition: Missing (Patient has couple missing molars. Rest are tight) Neck Range of motion (ROM): Limited ROM (somewhat decreased extension) Pertinent Findings EKG Pertinent Findings:: May 12, 2024. Sinus bradycardia Focused Labs Anesthesia Preop lab: CBC WBC 12.4 K/mm3 (4.4-11.0) H 05/12/24 05:51 RBC 5.59 M/mm3 (4.6-6.2) 05/12/24 05:51 Hgb 16.3 g/dL (13.0-16.5) 05/12/24 05:51 Hct 47.9 % (40-54) 05/12/24 05:51 Plt Count 240 K/mm3 (150-450) 05/12/24 05:51 CHEMISTRY Potassium 3.7 mmol/L (3.5-5.1) 05/12/24 05:51 Sodium 139 mmol/L (136-145) 05/12/24 05:51 Magnesium 1.9 mg/dL (1.6-2.6) 05/12/24 05:51 Phosphorus 3.6 mg/dL (2.5-4.9) 05/12/24 05:51 BUN 21 mg/dL (7-18) H 05/12/24 05:51 Creatinine 0.90 mg/dL (0.70-1.30) 05/12/24 05:51 Glucose 118 mg/dL (74-106) H 05/12/24 05:51 TSH 1.190 uIU/mL (0.358-3.740) 05/12/24 05:51 COAG Pre-Assessment Diagnosis/Proposed Procedure Planned Operative Procedure(s): Endoscopic retrograde cholangiopancreatography Anesthesia History Anesthesia History - clinical associate: Anesthesia History - clinical associate Hx Hospitalization Any Problems With Anesthesia No 05/12/24 00:58 Cholinesterase deficiency No 05/12/24 00:58 You/Your Family Experience No 05/12/24 00:58 fever (hyperthermia) with Relationship Recent Exposure to Contagious No 05/12/24 00:58 Disease Does patient have nerve No 05/12/24 00:58 stimulator Patient instructed to have No 05/12/24 00:58 device shut off --Does patient have Pacemaker or ICD? When Was Last Pacemaker Check QUESTION #4 FULL TEXT: You/Your Family Experience fever (hyperthermia) with Anesthesia Last Oral Intake Last Oral intake: Last Oral Intake NPO since Meds taken in AM with sips of water? Meds patient instructed to take am of surgery Any additional information?: Yes NPO since: 00:00 PONV PONV - clinical associate: PONV - clinical associate Female HX of Motion Sickness HX of N/V After Surgery Non-Smoker Duration of Surgery greater than 60 minutes Number of Risk Factors PONV Score Height & Weight Height & Weight: Anesthesia: Height & Weight Height 6 ft 05/12/24 00:50 Weight: 92.8 kg 05/12/24 03:39 Body Mass Index (BMI) 27.7 05/12/24 03:39 Respiratory Assessment Respiratory Assessment - clinical associate: Respiratory Tract Infection Hx - clinical associate Hx Respiratory Tract Infection No 05/12/24 00:58 STOP Sleep Apnea STOP Sleep Apnea - clinical associate: STOP Sleep Apnea - clinical associate Hx Hypertension No 05/12/24 00:51 Hx Sleep Apnea No 05/12/24 00:51 CPAP BIPAP Do you snore loudly (louder Yes 05/12/24 00:51 than talking or can be heard Do you often feel tired/ No 05/12/24 00:51 fatigued/ sleepy during daytime? Has anyone observed you stop No 05/12/24 00:51 breathing during sleep? STOP Results Negative 05/12/24 00:51 QUESTION #5 FULL TEXT : Do you snore loudly (louder than talking or can be heard through closed doors)? 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 Specify any problems Hx of Preganancy in last 3 N/A 05/12/24 00:51 Months Nurse Filling Out Transfusion DREDICK 05/12/24 00:51 & Questions: Date: 05/12/24 05/12/24 00:51 Time: 00:52 05/12/24 00:51 Patient unable to answer at this time (ie. confused, unrespo /Reproduction History /Reproductive History - clinical associate: /Reproductive Hx- clinical associate Hx Now No 05/12/24 00:58 Gestational Age (in weeks): EDC: Hx Hx Para Hx Section SAB No 05/12/24 00:58 Active Medications Active Medications: Current Medications Generic Name Dose Route Start Last Admin Trade Name Freq PRN Reason Stop Dose Admin Albuterol Sulfate 2.5 mg 05/12/24 00:44 Albuterol 2.5 Mg/3 Ml Vial.Neb. INHALATION Q2H PRN PRN SOB &/OR WHEEZING Piperacillin Sod/Tazobactam 50 mls @ 12.5 mls/hr 05/12/24 06:00 05/12/24 13:54 Sod 3.375 gm/ Sodium Chloride IV 12.5 mls/hr Q8 BETTINA Administration Pantoprazole Sodium 40 mg/ 110 mls @ 330 mls/hr 05/12/24 10:00 05/12/24 06:14 Sodium Chloride IV Infused DAILY BETTINA Infusion Sodium Chloride 500 mls @ 15 mls/hr 05/12/24 00:45 IV .[id number] PRN Saline Flush Sodium Chloride 500 mls @ 15 mls/hr 05/12/24 00:45 IV .[id number] PRN Additional IVPB Infusion Sodium Chloride 1,000 mls @ 15 mls/hr 05/12/24 15:10 IV 05/15/24 09:49 .Q48H BETTINA Protocol Ketorolac Tromethamine 15 mg 05/12/24 00:44 Ketorolac 15 Mg/Ml Vial IV 05/17/24 00:45 Q8H PRN PRN Pain 1-5/10 or Fever Morphine Sulfate 2 mg 05/12/24 00:44 05/12/24 11:23 Morphine 2 Mg/Ml Syringe IV 2 mg Q4H PRN PRN Administration Pain Score 6-10 Ondansetron HCl 4 mg 05/12/24 00:44 Ondansetron 4 Mg/2 Ml Vial IV Q6H PRN PRN NAUSEA/VOMITING Promethazine HCl 12.5 mg 05/12/24 00:44 Promethazine 25 Mg/Ml Syringe IM Q6H PRN PRN BREAKTHROUGH NAUSEA Sodium Chloride 10 - 40 ml 05/12/24 00:45 05/12/24 11:23 0.9% Saline Lock 10 Ml Syringe IV 10 ml UD PRN Administration SALINE FLUSH PFSH Home Medications ?Medication ?Instructions ?Recorded ?Last Taken ?Type NK 05/12/24 Unknown History Allergy/AdvReac Type Severity Reaction Status Date / Time No Known Allergies Allergy Verified 05/11/24 18:56 Family History no significant family his Surgical History History of appendectomy Social History household members: spouse housing: house Smoking Status: Current every day smoker tobacco type: cigarettes Review of Systems (Anesthesia) ROS Narrative System reviewed and no additional complaints, except as documented.
--- NOTE | 2024-05-12 17:20 | CON.PCM.GI_ITS ---
HPI Consult Data Date of Consult: 05/12/24 HPI Narrative Reason for Consultation: Pancreatitis HPI Narrative: KIMBERLEE MOORE, is 54 M with a past medical history of tobacco abuse, being overweight; with BMI of 27.7 this admission, history of appendectomy and chronic intermittent postprandial abdominal pain that is typically most active in the evenings who presents to [facility] ER complaining of abdominal pain, nausea and vomiting. Mr. Moore reports his symptoms began approximately one day prior to admission after he ate a large breakfast with subsequent severe abdominal pain that was burning, focused in his upper abdomen and radiating into his back. He also noted abdominal bloating followed by nausea and vomiting with no BM for the past ~24 hours. He states he normally takes Pepto-Bismol and the symptoms resolve after ~3 hours - but not this time. Earlier today he reports eating Raisin Bran cereal and then he developed severe nausea followed by bilious emesis. He denies blood in stools or vomitus. He asserts he has never underwent an EGD or colonoscopy. He denies associated fever, chills, diarrhea, history of EtOH abuse, chest pain or SOB. In the ER he was noted to have CT evidence of cholelithiasis and gallbladder wall thickening with no definite acute cholecystitis along with hepatic steatosis along with laboratory evidence of hyperbilirubinemia of 3.7 mg/dL with AST 184 U/L and ALT 596 U/L with an elevated serum lipase > 250 U/L consistent with suspected Acute Gallstone Pancreatitis [facility] Home Medications ?Medication ?Instructions ?Recorded ?Last Taken ?Type NK 05/12/24 Unknown History Allergy/AdvReac Type Severity Reaction Status Date / Time No Known Allergies Allergy Verified 05/11/24 18:56 Family History no significant family his Surgical History History of appendectomy Social History household members: spouse housing: house Smoking Status: Current every day smoker (Patient did not smoke today) tobacco type: cigarettes ROS Constitutional Constitutional: Denies anorexia, chills, fatigue or fever(s) Eyes Eyes: Denies blurry vision ENT HEENT: Denies abnormal hearing Cardiovascular Cardiovascular: Denies chest pain Respiratory/Chest Respiratory/Chest: Denies cough or dyspnea Gastrointestinal Gastrointestinal: Reports abdominal pain and nausea; Denies coffee ground emesis or vomiting Genitourinary Genitourinary: Denies change in urinary stream or dysuria Musculoskeletal Musculoskeletal: Denies abnormal gait or back pain Integumentary Integumentary: Denies jaundice or new lesions Neurologic Neurologic: Denies abnormal gait or dizziness Psychiatric Psychiatric: Denies anxiety or depression Physical Exam Const alert, oriented x3 and no apparent distress General Appearance: cooperative and well developed HEENT normocephalic, head/scalp atraumatic and moist oral mucous membranes Eyes PERRL and EOMs intact bilaterally Neck no lymphadenopathy, supple and no JVD Lymph Lymphatic: no lymphadenopathy noted and no lymphedema noted Resp normal respiratory effort, normal air movement and clear to auscultation bilaterally Cardio regular rate, regular rhythm, S1 normal heart sound, S2 normal heart sound and no murmurs GI normal to inspection, nondistended, normoactive bowel sounds and soft to palpation GI Narrative: mild epigastric tenderness, no guarding or rebound tenderness. Extremity normal capillary refill, no clubbing, cyanosis or edema and no calf tenderness General Extremity: no tenderness to palpation of joints or extremities Skin General Skin Exam: no breakdown Neuro CN's II-XII intact bilaterally, no focal motor deficits and no sensory deficits noted Coordination / Balance: [id number] test normal Motor Exam: strength 5/5 throughout and general weakness Psych thought process normal and cooperative Appearance: appropriate Lab / Micro Data 05/12/24 05:51 05/12/24 05:51 Labs: Laboratory Results - last 24 hr 05/11/24 20:03: WBC 9.8, RBC 5.97, Hgb 17.4 H, Hct 50.7, MCV 84.9, MCH 29.1, MCHC 34.3, RDW Std Deviation 41.7, RDW Coeff of Judy 13.4, Plt Count 250, MPV 9.2, Immature Gran % (Auto) 0.400, Neut % (Auto) 86.0 H, Lymph % (Auto) 6.7 L, Branch % (Auto) 6.3, Eos % (Auto) 0.4, Baso % (Auto) 0.2, Absolute Neuts (auto) 8.4 H, Absolute Lymphs (auto) 0.65 L, Nucleated RBC % 0, Sodium 140, Potassium 4.6, Chloride 105, Carbon Dioxide 27.0, Anion Gap 8, BUN 20 H, Creatinine 1.05, Estim Creat Clear Calc 87.25, Est GFR (MDRD) Af Amer 95, Est GFR (MDRD) Non-Af 78, BUN/Creatinine Ratio 19.0, Glucose 138 H, Calcium 9.9, Total Bilirubin 3.70 H, AST 184 H, ALT 596 H, Alkaline Phosphatase 73, Total Protein 7.9, Albumin 4.5, Globulin 3.4, Albumin/Globulin Ratio 1.3, Lipase > 250 H 05/11/24 20:07: Urine Color Richa, Urine Clarity Clear, Urine pH 5.0, Ur Specific [place] 1.025, Urine Protein 15 H, Urine Glucose (UA) Normal, Urine Ketones 50 H, Urine Occult Blood 10 H, Urine Nitrite Negative, Urine Bilirubin 3 H, Urine Urobilinogen 8 H, Ur Leukocyte Esterase 25 H, Urine RBC 0 SEEN, Urine WBC 0-5 SEEN, Ur Squamous Epith Cells 0-5 SEEN, Urine Bacteria 1+, Urine Mucus 1+ 05/12/24 05:51: WBC 12.4 H, RBC 5.59, Hgb 16.3, Hct 47.9, MCV 85.7, MCH 29.2, MCHC 34.0, RDW Std Deviation 42.4, RDW Coeff of Judy 13.7, Plt Count 240, MPV 9.7, Immature Gran % (Auto) 0.500, Neut % (Auto) 84.5 H, Lymph % (Auto) 8.1 L, Branch % (Auto) 6.4, Eos % (Auto) 0.3, Baso % (Auto) 0.2, Absolute Neuts (auto) 10.5 H, Absolute Lymphs (auto) 1.00, Nucleated RBC % 0, Sodium 139, Potassium 3.7, Chloride 106, Carbon Dioxide 28.0, Anion Gap 5, BUN 21 H, Creatinine 0.90, Estim Creat Clear Calc 101.79, Est GFR (MDRD) Af Amer 113, Est GFR (MDRD) Non-Af 93, BUN/Creatinine Ratio 23.3 H, Glucose 118 H, Calcium 9.3, Phosphorus 3.6, Magnesium 1.9, Total Bilirubin 2.10 H, AST 90 H, ALT 452 H, Alkaline Phosphatase 64, Total Protein 7.2, Albumin 3.8, Globulin 3.4, Albumin/Globulin Ratio 1.1, L ipase 988 H, TSH 1.190 Imaging Radiology Impression Gallbladder Ultrasound 05/11/24 21:10 IMPRESSION: 1. Cholelithiasis and gallbladder wall thickening but no definite acute cholecystitis. 2. Hepatic steatosis suggested. Electronically Signed: Vaibhav Alvarez MD at 22:56 EST , Abdomen/Pelvis CT 05/11/24 22:44 IMPRESSION: Acute pancreatitis without complications. Electronically Signed: Vaibhav Alvarez MD at 0:23 EST , Assessment & Plan Assessment/Plan (1) Acute gallstone pancreatitis: (2) Elevated bilirubin: (3) Transaminitis: (4) Intractable abdominal pain: (5) Intractable nausea and vomiting: (6) Tobacco abuse: (7) Polycythemia: (8) Overweight (BMI 25.0-29.9): PLAN: Plan 54-year-old comes in with abdominal pain and is having to have 1. Acute Gallstone Pancreatitis - Admit to general medical floor. Keep strict NPO and start Protonix IV. Give Zofran IV prn nausea and vomiting. Give Toradol IV prn for [id number] (level 1-5/10) pain or fever. Give Morphine IV prn for severe (level 6-10/10) pain. He will undergo ERCP. He was explained alternatives, risk, benefits include understanding bleeding, infection, sepsis, perforation, need for emergency or to . Have an ASA of 3. 2. Hyperbilirubinemia of 3.7 mg/dL and Transaminitis; with AST 184 U/L and ALT 596 U/L present on admission arising from #1 - Check daily CMP to follow trend. 3. Intractable Abdominal Pain with Nausea and Vomiting with bilious emesis attributable to #1 & #2 - Give Phenergan IM prn for breakthrough nausea. Follow pain regimen as outlined above in #1. Charges/Coding Visit Charges Inpatient E&M: 35826 Init Hosp L3
--- NOTE | 2024-05-12 17:45 | RAD_ITS ---
EXAM: FL FLUOROSCOPY < 1 HOUR CLINICAL INDICATION: ERCP TECHNIQUE: Fluoroscopic images performed in multiple projections. Fluoroscopic guidance was provided by a physician. Fluoroscopic time is 205.5 seconds. Fluoroscopic dose is 47.72 mGy COMPARISON: CT abdomen and pelvis, 05/11/2024. FINDINGS AND RAD/ERCP Biliary/Pancreas IMPRESSION: ERCP. 18 images documented. Refer to the procedure note for further details. Electronically Signed: Gerry Corea DO at 23:59 EST ,
--- NOTE | 2024-05-12 18:34 | OP.ERCP_ITS ---
Patient Name: Deuce Moore Procedure Date: 05/12/2024 5:16 PM Date of : 1970 Age: 54 Procedure: ERCP Indications: Bile duct stone(s), Jaundice, Elevated liver enzymes, Acute pancreatitis Providers: Damir Lazo DO Medicines: General Anesthesia Patient Profile: This is a 54 year old male. Refer to note in patient chart for documentation of history and physical. Patient has symptoms of acute epigastric abdominal pain and acute jaundice. Complications: No immediate complications. Procedure: Pre-Anesthesia Assessment: - Prior to the procedure, a History and Physical was performed, and patient medications and allergies were reviewed. The patient is competent. The risks and benefits of the procedure and the sedation options and risks were discussed with the patient. All questions were answered and informed consent was obtained. Patient identification and proposed procedure were verified by the physician in the pre-procedure area. Mental Status Examination: alert and oriented. Airway Examination: normal oropharyngeal airway and neck mobility. Respiratory Examination: clear to auscultation. CV Examination: normal. Prophylactic Antibiotics: The patient does not require prophylactic antibiotics. Prior Anticoagulants: The patient has taken no anticoagulant or antiplatelet agents. ASA Grade Assessment: II - A patient with mild systemic disease. After reviewing the risks and benefits, the patient was deemed in satisfactory condition to undergo the procedure. The anesthesia plan was to use monitored anesthesia care (MAC). Immediately prior to administration of medications, the patient was re-assessed for adequacy to receive sedatives. The heart rate, respiratory rate, oxygen saturations, blood pressure, adequacy of pulmonary ventilation, and response to care were monitored throughout the procedure. The physical status of the patient was re-assessed after the procedure. After obtaining informed consent, the scope was passed under direct vision. Throughout the procedure, the patient's blood pressure, pulse, and oxygen saturations were monitored continuously. The Duodenoscope was introduced through the mouth, and advanced to the duodenum and used to inject contrast into the bile duct and ventral pancreatic duct. The ERCP was accomplished without difficulty. The patient tolerated the procedure well. Scope In: 5:41:24 PM Scope Out: 6:26:08 PM Total Procedure Duration Time 0 hours 44 minutes 44 seconds Findings: The hydro generation supervisor film was normal. The esophagus was successfully intubated under direct vision. The scope was advanced to a normal major papilla in the descending duodenum without detailed examination of the pharynx, larynx and associated structures, and upper GI tract. The upper GI tract was grossly normal. The ventral pancreatic duct was deeply cannulated with the short-nosed traction sphincterotome. Contrast was injected. I personally interpreted the pancreatic duct images. Ductal flow of contrast was adequate. Image quality was excellent. Contrast extended to the pancreatic duct. Opacification of the entire pancreatic ductal system was successful. The maximum diameter of the ducts was 2 mm. The entire opacified area was normal. A 0.035 inch x 260 cm angled Dreamwire was passed into the ventral pancreatic duct. A 5 mm ventral pancreatic sphincterotomy was made with a braided traction (standard) sphincterotome using ERBE electrocautery. There was no post-sphincterotomy bleeding. To find object(s) the ventral pancreatic duct was swept with a 6 mm balloon starting at the pancreatic duct in the tail of the pancreas. Nothing was found. A long 0.025 inch Jagwire was passed into the biliary tree. The short-nosed traction sphincterotome was passed over the guidewire and the bile duct was then deeply cannulated. Contrast was injected. Opacification of the entire biliary tree was successful. The maximum diameter of the ducts was 7 mm. The entire biliary tree contained one stone, which was 6 mm in diameter. The entire biliary tree was mildly dilated and diffusely dilated, with a stone causing an obstruction. The largest diameter was 7 mm. A 3 mm biliary sphincterotomy was made with a braided traction (standard) sphincterotome using ERBE electrocautery. There was no post-sphincterotomy bleeding. The biliary tree was swept with a 12 mm balloon starting at the bifurcation, left intrahepatic duct(s), left main hepatic duct, right intrahepatic duct(s) and right main hepatic duct. Sludge was swept from the duct. All stones were removed. One 5 Fr by 7 cm temporary stent was placed 5 cm into the ventral pancreatic duct. Clear fluid flowed through the stent. The stent was in good position. Impression: - The entire biliary tree was mildly dilated, with a stone causing an obstruction. - Choledocholithiasis was found. Complete removal was accomplished by biliary sphincterotomy and balloon extraction. - A pancreatic sphincterotomy was performed. - The ventral pancreatic duct was swept and nothing was found. - A biliary sphincterotomy was performed. - The biliary tree was swept. - One temporary stent was placed into the ventral pancreatic duct. Procedure Code(s): --- Professional --- 62020, Endoscopic retrograde cholangiopancreatography (ERCP); with placement of endoscopic stent into biliary or pancreatic duct, including pre- and post-dilation and guide wire passage, when performed, including sphincterotomy, when performed, each stent 48649, 51, Endoscopic retrograde cholangiopancreatography (ERCP); with removal of calculi/debris from biliary/pancreatic duct(s) 02429, 59, Endoscopic retrograde cholangiopancreatography (ERCP); with sphincterotomy/papillotomy 21791, 26, Endoscopic catheterization of the pancreatic ductal system, radiological supervision and interpretation CPT copyright 2021 [employer]. All rights reserved. The codes documented in this report are preliminary and upon clinical cytogeneticist scientist review may be revised to meet current compliance requirements. Damir Lazo DO 05/12/2024 6:34:35 PM This report has been signed electronically. Number of Addenda: 0 Note Initiated On: 05/12/2024 5:16 PM
--- NOTE | 2024-05-12 18:35 | OP.CCLET_ITS ---
05/12/2024 Ifeanyi Laurent [address] [place] [address] Re : ERCP procedure for Deuce Moore Dear Dr. Laurent This procedure was performed on Sunday, May 12, 2024. My impressions and recommendations are as follows: Impressions : - The entire biliary tree was mildly dilated, with a stone causing an obstruction. - Choledocholithiasis was found. Complete removal was accomplished by biliary sphincterotomy and balloon extraction. - A pancreatic sphincterotomy was performed. - The ventral pancreatic duct was swept and nothing was found. - A biliary sphincterotomy was performed. - The biliary tree was swept. - One temporary stent was placed into the ventral pancreatic duct. Recommendations : My findings are described in the full procedure note, which is enclosed. If I can be of further assistance, please feel free to contact me at . Sincerely, Damir Lazo, 05/12/2024 6:34:35 PM This report has been signed electronically.
--- NOTE | 2024-05-12 18:45 | PCM.POST.ANE ---
Anesthesia: Postop Eval I Current Vital Signs Temperature: 97.1 F Pulse Rate: 84 Blood Pressure: 124/84 Respiratory Rate: 16 Pulse Ox: 95 Oxygen Delivery Method: Room Air Assessment Airway patent: Yes Spontaneous unlabored respirations: Yes Mental status: Asleep nausea: No Vomiting: No Anesthesia Complication: No Fluid Hydration Crystalloid volume administer (ml): 1,000 Total IV fluid infused: 1,000 Progress Note Anesthesia document: Postop Eval 1 completed: Yes
[2024-05-12] MEDS: Lactated Ringers 1,000 ML 999 ML IV (18:51)
[2024-05-12] MEDS: Metoclopramide 10 MG/2 ML Vial IV ×2 (19:06→23:47)
--- NOTE | 2024-05-12 19:10 | PCM.POSTANE2 ---
Anesthesia Postop Eval I Sum Postop Eval Completion status Anesthesia document: Postop Eval 1 completed: Yes Anesthesia Postop Eval I Summary Anesthesia Postop Eval I Summary: Anesthesia Postop Eval I: Assessment Summary Airway patent Yes 05/12/24 18:47 Spontaneous unlabored Yes 05/12/24 18:47 respirations Mental status Asleep 05/12/24 18:47 nausea No 05/12/24 18:47 Vomiting No 05/12/24 18:47 Anesthesia Postop Eval I: Fluid Summary Crystalloid volume administer 1,000 05/12/24 18:47 (ml) Colloids volume administered ( ml) Blood Product volume administered (ml) Total IV fluid infused 1,000 05/12/24 18:47 Anesthesia Postop Eval I: Summary Notes Anesthesia Complication No 05/12/24 18:47 Anesthesia Complication Comment: Post-operative progress note Anesthesia: Postop Eval II Evaluation Mental status: Awake and Calm Pain Level: 3 nausea: No Vomiting: No Progress Note Post-operative progress note: Demerol given for shivering Complications Anesthesia Complication: No
[2024-05-12] MEDS: 0.9% Normal Saline (1000mL) 1,000 ML 15 ML IV (21:09)
[2024-05-13 03:22] VITALS: BP 108/62; PULSE 70; RESP 14; TEMP 37.3; O2SAT 96
[2024-05-13 06:00] VITALS: BMI 28.5
[2024-05-13 06:24] VITALS: BP 108/73; PULSE 65; RESP 16; TEMP 37.2; O2SAT 96
[2024-05-13] MEDS: Metoclopramide 10 MG/2 ML Vial IV ×4 (06:26→23:46)
[2024-05-13] MEDS: Piperacil/Tazobactam 3.375 GM in 0.9% Normal Saline (50mL MB+) 50 ML IV ×3 (06:26→22:25)
[2024-05-13 07:24] LABS: Absolute Lymphocyte Count 1.61 X10^3/uL (0.83-4.51); Absolute Neutrophil Count 10.5 X10^3/uL (2.0-7.7); Basophil# 0.02 X10^3/uL; Basophil% 0.2 % (0-1); Eosinophil# 0.04 X10^3/uL; Eosinophils% 0.3 % (0-5); Hematocrit 41.8 % (40-54); Hemoglobin 13.9 g/dL (13.0-16.5); Lymphocyte # 1.61 X10^3/ul (0.83-4.51); Lymphocyte % 12.2 % (19-41); Mean Corp Hgb Conc 33.3 g/dL (32-36); Mean Corpuscular Hgb 28.9 pg (27.0-32.0); Mean Corpuscular Volume 86.9 fL (80-94); Mean Platelet Vol. 9.7 fl (6.2-12.0); Monocyte# 0.97 X10^3/uL; Monocyte% 7.3 % (0-10); NRBC Flagged by Analyzer 0 % (0-5); Neutrophil # 10.52 X10^3/uL (2.7-7.7); Neutrophil % 79.5 % (47-70); Platelet Count 215 K/mm3 (150-450); RBC Distribution Width CV 13.3 % (11.6-14.6); RBC Distribution Width SD 42.3 fl (35.1-43.9); Red Blood Count 4.81 M/mm3 (4.6-6.2); White Blood Count 13.2 K/mm3 (4.4-11.0)
--- NOTE | 2024-05-13 07:36 | PN.SURG_ITS ---
Subjective Subjective Patient reports he is more comfortable than before the ERCP. Objective Data Objective Data Vital Signs: Vital Signs Temp Pulse Resp BP Pulse Ox O2 Del Method 98.9 F 65 16 108/73 96 Room Air 05/13/24 06:24 05/13/24 06:24 05/13/24 06:24 05/13/24 06:24 05/13/24 06:24 05/13/24 06:24 Oxygen Delivery Method Room Air Weight: 210 lb 12.191 oz Body Mass Index (BMI) 28.5 Intake & Output: Intake and Output for Last 24 Hours 05/11/24 05/12/24 05/13/24 23:59 23:59 23:59 Intake Total 3260 / 3260 475 / 475 Balance 3260 / 3260 475 / 475 Lab / Micro Data 05/13/24 06:51 05/12/24 05:51 Labs: Laboratory Results - last 24 hr 05/13/24 06:51: WBC 13.2 H, RBC 4.81, Hgb 13.9, Hct 41.8, MCV 86.9, MCH 28.9, MCHC 33.3, RDW Std Deviation 42.3, RDW Coeff of Judy 13.3, Plt Count 215, MPV 9.7, Immature Gran % (Auto) 0.500, Neut % (Auto) 79.5 H, Lymph % (Auto) 12.2 L, [place] % (Auto) 7.3, Eos % (Auto) 0.3, Baso % (Auto) 0.2, Absolute Neuts (auto) 10.5 H, Absolute Lymphs (auto) 1.61, Nucleated RBC % 0 Radiography Diagnostic Testing: Radiology Impression Endo Retro Cholangiopancreatogram 05/12/24 17:45 IMPRESSION: ERCP. 18 images documented. Refer to the procedure note for further details. Electronically Signed: Gerry Corea, at 23:59 EST , Physical Exam Const oriented x3 Resp normal respiratory effort GI soft to palpation Palpation: tender epigastric Assessment & Plan Assessment/Plan (1) Acute gallstone pancreatitis: PLAN: The patient had ERCP and stone removal. I will start him on a full liquid diet today and make him n.p.o. after midnight for laparoscopic cholecystectomy tomorrow. Franklin Lopez MD Pager: [facility] [address] [place] [address] Office:
--- NOTE | 2024-05-13 07:45 | PCM.PN.HOSP ---
Reason for Visit Reason for Visit: Diagnoses Secondary polycythemia (05/12/24) Overweight (05/12/24) Biliary acute pancreatitis without necrosis or infection (05/12/24) Unspecified abdominal pain (05/12/24) Nausea with vomiting, unspecified (05/12/24) Unspecified jaundice (05/12/24) Elevation of levels of liver transaminase levels (05/12/24) Tobacco use (05/12/24) Subjective Subjective Patient feels remarkably improved following ERCP and discussed with him improvement of his labs including decreased liver enzymes as well as improved nearly normalized lipase levels. He denies any nausea, emesis or further abdominal pain in the epigastrium or right upper quadrant. He understands plan of care now that he is undergone ERCP and no evidence of significantly worsened pancreatitis plan for 05/14/2024 cholecystectomy to which she is amenable. Patient denies fevers, chills, nausea, emesis, recurrent or worse abdominal pain, chest pain or dyspnea. Objective Data Objective Data Vital Signs: Vital Signs Temp Pulse Resp BP Pulse Ox O2 Del Method 98.9 F 65 16 108/73 96 Room Air 05/13/24 06:24 05/13/24 06:24 05/13/24 06:24 05/13/24 06:24 05/13/24 06:24 05/13/24 06:24 Oxygen Delivery Method Room Air Weight: 210 lb 12.191 oz Body Mass Index (BMI) 28.5 Intake & Output: Intake and Output for Last 24 Hours 05/11/24 05/12/24 05/13/24 23:59 23:59 23:59 Intake Total 3260 / 3260 475 / 475 Balance 3260 / 3260 475 / 475 Lab / Micro Data 05/13/24 06:51 05/13/24 06:51 Labs: Laboratory Results - last 24 hr 05/13/24 06:51: WBC 13.2 H, RBC 4.81, Hgb 13.9, Hct 41.8, MCV 86.9, MCH 28.9, MCHC 33.3, RDW Std Deviation 42.3, RDW Coeff of Judy 13.3, Plt Count 215, MPV 9.7, Immature Gran % (Auto) 0.500, Neut % (Auto) 79.5 H, Lymph % (Auto) 12.2 L, Grant % (Auto) 7.3, Eos % (Auto) 0.3, Baso % (Auto) 0.2, Absolute Neuts (auto) 10.5 H, Absolute Lymphs (auto) 1.61, Nucleated RBC % 0 Radiography Diagnostic Testing: Radiology Impression Endo Retro Cholangiopancreatogram 05/12/24 17:45 IMPRESSION: ERCP. 18 images documented. Refer to the procedure note for further details. Electronically Signed: Gerry VAristoe Corea, at 23:59 EST , Physical Exam Narrative Physical Examination: General: Awake, alert, oriented x 3 and cooperative, seated upright in MS bed, notes feeling well, denies any pain Skin: Normal color, normal turgor, no icterus, no cyanosis. HEENT: AT/NC, EOMI, PERRLA, MMM. Lungs: CTA bilaterally, moderate effort, mild decrease BL bases, no rales, ronchi or wheezing. Heart: Regular rate and rhythm; no gallop, rub audible. Abdomen: Soft, NTTP including the epigastrium or right upper quadrant, ND, hyperactive BS Extremities: No cyanosis, clubbing, or edema. Neurological: Patient awake, alert, oriented as noted, cognitive function intact; pupils equally reactive to light and accommodation, cranial nerves grossly normal, moving all 4 extremities, no focal deficits, strength preserved, initially walking in the room with no evidence of any weakness or pain. Psychiatric: Affect appears normal, no acute evidence of depressive or anxiety feelings. Assessment & Plan Assessment/Plan (1) Acute gallstone pancreatitis: PLAN: Plan The patient is a 54 y/o M w/ PMHx: Overweight, Tobacco use who presents to the [facility] ED on 05/11/2024 with frequent histories of postprandial approximate 2 to 3-hour following epigastric and right upper quadrant discomfort with episodes of nausea and emesis however on evening prior to his presentation he had similar presentation but it was more constant and was not going away prompting him to present for evaluation. #1. Acute Gallstone pancreatitis with evidence of choledocholithiasis with significant transaminitis and hyperbilirubinemia w/ abdominal pain, N/V: ED presentation with total bilirubin 3.70, AST/LT 184/596, lipase greater than 250 with lipase julia 05/12/2024 at 988. Patient admitted to medical surgical floor, underwent ERCP 05/12/2020 with evidence of choledocholithiasis with the entire biliary tree noted to be mildly dilated with a stone causing obstruction with removal with biliary sphincterotomy and balloon extraction, pancreatic sphincterotomy, ventral pancreatic duct swept with nothing found, biliary sphincterotomy with 1 temporary stent placed in the ventral pancreatic duct, will maintain on IVFs, NPO, IV PPI, IV/po pain control, trend lipase, CMP, maintain on IV Zosyn, plan 05/14/2024 operative intervention for cholecystectomy. 05/13/2024 total bilirubin 1.20, AST/LT 23/262, lipase 174. #2. Abnormal urinalysis, no concern for UTI is asymptomatic: Initial UA obtained with 1+ bacteria but negative nitrite with leukocyte Estrace 25, urine culture is pending but no concern for UTI at this time, maintained as noted above on IV Zosyn. #3. Overweight: Weight loss and lifestyle changes encouraged. #4. Tobacco Abuse: Encouraged cessation, inpatient consultation per RT, NR if desired. #5. DVT prophylaxis: SCDs Charges/Coding Visit Charges Inpatient E&M: 35149 Subs Hosp L2
[2024-05-13 07:56] LABS: ALB/GLOB Ratio 1.2 RATIO (0.9-2.4); AST(SGOT) 23 U/L (15-37); Alanine Aminotransfer ALT/SGPT 262 U/L (16-61); Albumin, Serum 3.5 g/dL (3.2-5.0); Alkaline Phosphatase 56 U/L (45-117); Anion Gap 5 (5-15); BUN 23 mg/dL (7-18); BUN/Creat Ratio 27.4 RATIO (10-20); Calcium,Total 8.8 mg/dL (8.5-10.1); Chloride 107 mmol/L (98-107); Creatinine, Serum 0.84 mg/dL (0.70-1.30); EST Glomerular Filtration Rate 101 mL/min (>60); Est Glom Filt Rate - Afr Amer 122 mL/min (>60); Estimated Creatinine Clearance 119.18 ml/min; Glucose 99 mg/dL (74-106); Lipase 174 U/L (13-75); Potassium 3.8 mmol/L (3.5-5.1); Protein, Total 6.5 g/dL (6.4-8.2); Sodium Level 138 mmol/L (136-145)
[2024-05-13] MEDS: Pantoprazole Sodium 40 MG in 0.9% Normal Saline (100mL MB+) 100 ML 330 MG IV (10:28)
[2024-05-13 11:41] VITALS: BP 112/63; PULSE 74; RESP 18; TEMP 36.8; O2SAT 97
[2024-05-13 15:28] VITALS: BP 115/60; PULSE 69; RESP 18; TEMP 36.6; O2SAT 96
[2024-05-13 19:56] VITALS: BP 128/73; PULSE 70; RESP 16; TEMP 36.7; O2SAT 95
[2024-05-13 23:40] VITALS: BP 124/78; PULSE 68; RESP 16; TEMP 37; O2SAT 98
[2024-05-14] VITALS (15 sets, daily range): BP systolic 109–154; BP diastolic 68–101; PULSE 65–87; RESP 16–18; TEMP 36.4–36.9; O2SAT 92–99; BMI 28.5
[2024-05-14] MEDS: Piperacil/Tazobactam 3.375 GM in 0.9% Normal Saline (50mL MB+) 50 ML IV ×2 (05:57→14:05)
[2024-05-14] MEDS: Metoclopramide 10 MG/2 ML Vial IV ×2 (05:57→12:23)
[2024-05-14 06:36] LABS: Absolute Lymphocyte Count 1.81 X10^3/uL (0.83-4.51); Absolute Neutrophil Count 7.6 X10^3/uL (2.0-7.7); Basophil# 0.03 X10^3/uL; Basophil% 0.3 % (0-1); Eosinophils% 3.6 % (0-5); Hematocrit 40.4 % (40-54); Hemoglobin 13.3 g/dL (13.0-16.5); Lymphocyte # 1.81 X10^3/ul (0.83-4.51); Lymphocyte % 16.3 % (19-41); Mean Corp Hgb Conc 32.9 g/dL (32-36); Mean Corpuscular Hgb 28.5 pg (27.0-32.0); Mean Corpuscular Volume 86.7 fL (80-94); Mean Platelet Vol. 9.6 fl (6.2-12.0); Monocyte# 1.21 X10^3/uL; Monocyte% 10.9 % (0-10); NRBC Flagged by Analyzer 0 % (0-5); Neutrophil # 7.64 X10^3/uL (2.7-7.7); Neutrophil % 68.5 % (47-70); Platelet Count 215 K/mm3 (150-450); RBC Distribution Width CV 13.3 % (11.6-14.6); RBC Distribution Width SD 41.9 fl (35.1-43.9); Red Blood Count 4.66 M/mm3 (4.6-6.2); White Blood Count 11.1 K/mm3 (4.4-11.0)
--- NOTE | 2024-05-14 06:48 | PCM.PN.HOSP ---
Reason for Visit Reason for Visit: Diagnoses Secondary polycythemia (05/12/24) Overweight (05/12/24) Biliary acute pancreatitis without necrosis or infection (05/12/24) Unspecified abdominal pain (05/12/24) Nausea with vomiting, unspecified (05/12/24) Unspecified jaundice (05/12/24) Elevation of levels of liver transaminase levels (05/12/24) Tobacco use (05/12/24) Subjective Subjective OR ervin @ 9:15 am Objective Data Objective Data Vital Signs: Vital Signs Temp Pulse Resp BP Pulse Ox O2 Del Method 98.3 F 87 18 128/68 H 98 Room Air 05/14/24 04:59 05/14/24 04:59 05/14/24 04:59 05/14/24 04:59 05/14/24 04:59 05/14/24 04:59 Oxygen Delivery Method Room Air Weight: 210 lb 12.191 oz Body Mass Index (BMI) 28.5 Intake & Output: Intake and Output for Last 24 Hours 05/12/24 05/13/24 05/14/24 23:59 23:59 23:59 Intake Total 3260 / 3260 1332.25 / 1332.25 50 / 50 Balance 3260 / 3260 1332.25 / 1332.25 50 / 50 Lab / Micro Data 05/14/24 05:53 05/13/24 06:51 Labs: Laboratory Results - last 24 hr 05/13/24 06:51: WBC 13.2 H, RBC 4.81, Hgb 13.9, Hct 41.8, MCV 86.9, MCH 28.9, MCHC 33.3, RDW Std Deviation 42.3, RDW Coeff of Judy 13.3, Plt Count 215, MPV 9.7, Immature Gran % (Auto) 0.500, Neut % (Auto) 79.5 H, Lymph % (Auto) 12.2 L, Flagler % (Auto) 7.3, Eos % (Auto) 0.3, Baso % (Auto) 0.2, Absolute Neuts (auto) 10.5 H, Absolute Lymphs (auto) 1.61, Nucleated RBC % 0, Sodium 138, Potassium 3.8, Chloride 107, Carbon Dioxide 26.0, Anion Gap 5, BUN 23 H, Creatinine 0.84, Estim Creat Clear Calc 119.18, Est GFR (MDRD) Af Amer 122, Est GFR (MDRD) Non-Af 101, BUN/Creatinine Ratio 27.4 H, Glucose 99, Calcium 8.8, Total Bilirubin 1.20 H, AST 23, ALT 262 H, Alkaline Phosphatase 56, Total Protein 6.5, Albumin 3.5, Globulin 3.0, Albumin/Globulin Ratio 1.2, Lipase 174 H 05/14/24 05:53: WBC 11.1 H, RBC 4.66, Hgb 13.3, Hct 40.4, MCV 86.7, MCH 28.5, MCHC 32.9, RDW Std Deviation 41.9, RDW Coeff of Judy 13.3, Plt Count 215, MPV 9.6, Immature Gran % (Auto) 0.400, Neut % (Auto) 68.5, Lymph % (Auto) 16.3 L, Flagler % (Auto) 10.9 H, Eos % (Auto) 3.6, Baso % (Auto) 0.3, Absolute Neuts (auto) 7.6, Absolute Lymphs (auto) 1.81, Nucleated RBC % 0
[2024-05-14 07:03] LABS: AST(SGOT) 12 U/L (15-37); Alanine Aminotransfer ALT/SGPT 165 U/L (16-61); Albumin, Serum 3.3 g/dL (3.2-5.0); Alkaline Phosphatase 49 U/L (45-117); Anion Gap 4 (5-15); BUN 14 mg/dL (7-18); BUN/Creat Ratio 15.7 RATIO (10-20); Calcium,Total 8.7 mg/dL (8.5-10.1); Chloride 106 mmol/L (98-107); Creatinine, Serum 0.89 mg/dL (0.70-1.30); EST Glomerular Filtration Rate 94 mL/min (>60); Est Glom Filt Rate - Afr Amer 114 mL/min (>60); Estimated Creatinine Clearance 112.48 ml/min; Globulin 3.2 g/dL (2.2-4.2); Glucose 95 mg/dL (74-106); Potassium 3.6 mmol/L (3.5-5.1); Protein, Total 6.5 g/dL (6.4-8.2); Sodium Level 138 mmol/L (136-145)
--- NOTE | 2024-05-14 07:28 | PN.SURG_ITS ---
Subjective Subjective Patient has no complaints this morning Objective Data Objective Data Vital Signs: Vital Signs Temp Pulse Resp BP Pulse Ox O2 Del Method 98.3 F 87 18 128/68 H 98 Room Air 05/14/24 04:59 05/14/24 04:59 05/14/24 04:59 05/14/24 04:59 05/14/24 04:59 05/14/24 04:59 Oxygen Delivery Method Room Air Weight: 210 lb 12.191 oz Body Mass Index (BMI) 28.5 Intake & Output: Intake and Output for Last 24 Hours 05/12/24 05/13/24 05/14/24 23:59 23:59 23:59 Intake Total 3260 / 3260 1332.25 / 1332.25 50 / 50 Balance 3260 / 3260 1332.25 / 1332.25 50 / 50 Lab / Micro Data 05/14/24 05:53 05/14/24 05:53 Labs: Laboratory Results - last 24 hr 05/13/24 06:51: Sodium 138, Potassium 3.8, Chloride 107, Carbon Dioxide 26.0, Anion Gap 5, BUN 23 H, Creatinine 0.84, Estim Creat Clear Calc 119.18, Est GFR (MDRD) Af Amer 122, Est GFR (MDRD) Non-Af 101, BUN/Creatinine Ratio 27.4 H, Glucose 99, Calcium 8.8, Total Bilirubin 1.20 H, AST 23, ALT 262 H, Alkaline Phosphatase 56, Total Protein 6.5, Albumin 3.5, Globulin 3.0, Albumin/Globulin Ratio 1.2, Lipase 174 H 05/14/24 05:53: WBC 11.1 H, RBC 4.66, Hgb 13.3, Hct 40.4, MCV 86.7, MCH 28.5, MCHC 32.9, RDW Std Deviation 41.9, RDW Coeff of Judy 13.3, Plt Count 215, MPV 9.6, Immature Gran % (Auto) 0.400, Neut % (Auto) 68.5, Lymph % (Auto) 16.3 L, M sharon % (Auto) 10.9 H, Eos % (Auto) 3.6, Baso % (Auto) 0.3, Absolute Neuts (auto) 7.6, Absolute Lymphs (auto) 1.81, Nucleated RBC % 0, Sodium 138, Potassium 3.6, Chloride 106, Carbon Dioxide 27.0, Anion Gap 4 L, BUN 14, Creatinine 0.89, Estim Creat Clear Calc 112.48, Est GFR (MDRD) Af Amer 114, Est GFR (MDRD) Non-Af 94, BUN/Creatinine Ratio 15.7, Glucose 95, Calcium 8.7, Total Bilirubin 1.00, AST 12 L, ALT 165 H, Alkaline Phosphatase 49, Total Protein 6.5, Albumin 3.3, Globulin 3.2, Albumin/Globulin Ratio 1.0 Physical Exam Const oriented x3 and no apparent distress Resp normal respiratory effort GI normal to inspection, nondistended, normoactive bowel sounds Assessment & Plan Assessment/Plan (1) Acute gallstone pancreatitis: PLAN: Patient doing well with no pain today. Labs are pending. Plan for laparoscopic cholecystectomy this morning. I discussed the procedure in detail with the patient. I discussed the risks, benefits, and alternatives of the procedure. I discussed the risks including but not limited to bleeding, infection, injury to surrounding organs such as the liver, bile duct, bowels. I did discuss the possibility of having to convert to an open procedure as well as the possibility that if any injuries occurred this may necessitate further surgery at a tertiary care center. Franklin Lopez MD Pager: [facility] [address] [place] [address], [address] [place] [address] Office:
--- NOTE | 2024-05-14 08:15 | RAD_ITS ---
CLINICAL HISTORY: Male, 54 years old. Abdominal pain PROCEDURE: CHOLANGIOGRAM - intraoperative /FLUOROSCOPY TIME (if supplied): (0:12) minutes/seconds TECHNIQUE: (All elements of maximal sterile barrier technique followed, including US elements as applicable) 12 seconds of fluoroscopy time was utilized during an intraoperative cholangiogram and a single cine run is submitted for interpretation. FINDINGS: A cannula seen in the cystic duct remnant. Contrast is seen throughout the biliary tree with spillage through the ampulla into the duodenum. There is no filling defect within the common bile duct to suggest common bile duct stone. RAD/Cholangiogram/ O R,Initial IMPRESSION: No common bile duct stone. Electronically Signed: Padilla Araujo MD at 12:54 EST ,
--- NOTE | 2024-05-14 08:36 | PCM.PRE.AN2 ---
ASA Classification* ASA Classification ASA Classification: 2 Assessment & Plan Anesthesia* Anesthesia Assessment Anesthesia Assessment: Discussed sedation and/or anesthesia options, risks, benefits, and alternatives with patient/parents/legal guardian/POA. Questions invited. The patient/parents/legal guardian/POA seems to understand and agrees to proceed with anesthesia plan. Reviewed the physical assessment, medical history, allergy history and patient home medications list prior to surgery/procedure/anesthetic and documented any changes. Performed airway and anesthesia risk assessments. Anesthesia Type Anesthesia Type: General History Source History Obtained from:: Patient and Chart Anesthesia Focused Assessment* Temperature: 98.3 F Pulse Rate: 87 Blood Pressure: 128/68 Respiratory Rate: 18 Pulse Ox: 98 Oxygen Delivery Method: Room Air Airway Assessment Mouth opens: >3 cm Mallampati Score: IV Teeth Condition: Missing (Patient is missing couple molars. Rest of the teeth are tight.) Neck Range of motion (ROM): Limited ROM (Somewhat decreased extension) Focused Labs Anesthesia Preop lab: CBC WBC 11.1 K/mm3 (4.4-11.0) H 05/14/24 05:53 RBC 4.66 M/mm3 (4.6-6.2) 05/14/24 05:53 Hgb 13.3 g/dL (13.0-16.5) 05/14/24 05:53 Hct 40.4 % (40-54) 05/14/24 05:53 Plt Count 215 K/mm3 (150-450) 05/14/24 05:53 CHEMISTRY Potassium 3.6 mmol/L (3.5-5.1) 05/14/24 05:53 Sodium 138 mmol/L (136-145) 05/14/24 05:53 Magnesium 1.9 mg/dL (1.6-2.6) 05/12/24 05:51 Phosphorus 3.6 mg/dL (2.5-4.9) 05/12/24 05:51 BUN 14 mg/dL (7-18) 05/14/24 05:53 Creatinine 0.89 mg/dL (0.70-1.30) 05/14/24 05:53 Glucose 95 mg/dL (74-106) 05/14/24 05:53 TSH 1.190 uIU/mL (0.358-3.740) 05/12/24 05:51 COAG Pre-Assessment Diagnosis/Proposed Procedure Planned Operative Procedure(s): Laparoscopic cholecystectomy Anesthesia History Anesthesia History - manufacturer representative: Anesthesia History - manufacturer representative Hx Hospitalization Any Problems With Anesthesia No 05/12/24 00:58 Cholinesterase deficiency No 05/12/24 00:58 You/Your Family Experience No 05/12/24 00:58 fever (hyperthermia) with Relationship Recent Exposure to Contagious No 05/12/24 00:58 Disease Does patient have nerve No 05/12/24 00:58 stimulator Patient instructed to have No 05/12/24 00:58 device shut off --Does patient have Pacemaker No 05/14/24 07:18 or ICD? When Was Last Pacemaker Check QUESTION #4 FULL TEXT: You/Your Family Experience fever (hyperthermia) with Anesthesia Last Oral Intake Last Oral intake: Last Oral Intake NPO since 00:00 05/14/24 07:18 Meds taken in AM with sips of No 05/14/24 07:18 water? Meds patient instructed to take am of surgery PONV PONV - manufacturer representative: PONV - manufacturer representative Female HX of Motion Sickness HX of N/V After Surgery Non-Smoker Duration of Surgery greater than 60 minutes Number of Risk Factors PONV Score Height & Weight Height & Weight: Anesthesia: Height & Weight Height 6 ft 05/14/24 07:18 Weight: 95.6 kg 05/14/24 07:18 Body Mass Index (BMI) 28.5 05/14/24 07:18 Respiratory Assessment Respiratory Assessment - manufacturer representative: Respiratory Tract Infection Hx - manufacturer representative Hx Respiratory Tract Infection No 05/12/24 00:58 STOP Sleep Apnea STOP Sleep Apnea - manufacturer representative: STOP Sleep Apnea - manufacturer representative Hx Hypertension No 05/12/24 00:51 Hx Sleep Apnea No 05/12/24 00:51 CPAP BIPAP Do you snore loudly (louder Yes 05/12/24 00:51 than talking or can be heard Do you often feel tired/ No 05/12/24 00:51 fatigued/ sleepy during daytime? Has anyone observed you stop No 05/12/24 00:51 breathing during sleep? STOP Results Negative 05/12/24 18:43 QUESTION #5 FULL TEXT : Do you snore loudly (louder than talking or can be heard through closed doors)? 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 Specify any problems Hx of Preganancy in last 3 N/A 05/12/24 00:51 Months Nurse Filling Out Transfusion DREDICK 05/12/24 00:51 & Questions: Date: 05/12/24 05/12/24 00:51 Time: 00:52 05/12/24 00:51 Patient unable to answer at this time (ie. confused, unrespo /Reproduction History /Reproductive History - manufacturer representative: /Reproductive Hx- manufacturer representative Hx Now No 05/12/24 00:58 Gestational Age (in weeks): EDC: Hx Hx Para Hx Section SAB No 05/12/24 00:58 Active Medications Active Medications: Current Medications Generic Name Dose Route Start Last Admin Trade Name Freq PRN Reason Stop Dose Admin Albuterol Sulfate 2.5 mg 05/12/24 00:44 Albuterol 2.5 Mg/3 Ml Vial.Neb. INHALATION Q2H PRN PRN SOB &/OR WHEEZING Piperacillin Sod/Tazobactam 50 mls @ 12.5 mls/hr 05/12/24 06:00 05/14/24 05:57 Sod 3.375 gm/ Sodium Chloride IV 12.5 mls/hr Q8 BETTINA Administration Pantoprazole Sodium 40 mg/ 110 mls @ 330 mls/hr 05/12/24 10:00 05/13/24 10:52 Sodium Chloride IV Infused DAILY BETTINA Infusion Sodium Chloride 500 mls @ 15 mls/hr 05/12/24 00:45 IV .[id number] PRN Saline Flush Sodium Chloride 500 mls @ 15 mls/hr 05/12/24 00:45 IV .[id number] PRN Additional IVPB Infusion Sodium Chloride 1,000 mls @ 15 mls/hr 05/12/24 15:10 05/13/24 13:38 IV 05/15/24 09:49 0 mls/hr .Q48H BETTINA Infusion Protocol Sodium Chloride 1,000 mls @ 15 mls/hr 05/14/24 08:00 IV 05/19/24 21:19 .Q48H BETTINA Protocol Ketorolac Tromethamine 15 mg 05/12/24 00:44 Ketorolac 15 Mg/Ml Vial IV 05/17/24 00:45 Q8H PRN PRN Pain 1-5/10 or Fever Metoclopramide HCl 10 mg 05/13/24 00:00 05/14/24 05:57 Metoclopramide 10 Mg/2 Ml Vial IV 10 mg Q6 BETTINA Administration Morphine Sulfate 2 mg 05/12/24 00:44 05/12/24 11:23 Morphine 2 Mg/Ml Syringe IV 2 mg Q4H PRN PRN Administration Pain Score 6-10 Ondansetron HCl 4 mg 05/12/24 00:44 Ondansetron 4 Mg/2 Ml Vial IV Q6H PRN PRN NAUSEA/VOMITING Promethazine HCl 12.5 mg 05/12/24 00:44 Promethazine 25 Mg/Ml Syringe IM Q6H PRN PRN BREAKTHROUGH NAUSEA Sodium Chloride 10 - 40 ml 05/12/24 00:45 05/12/24 21:23 0.9% Saline Lock 10 Ml Syringe IV 10 ml UD PRN Administration SALINE FLUSH PFSH Home Medications ?Medication ?Instructions ?Recorded ?Last Taken ?Type NK 05/12/24 Unknown History Allergy/AdvReac Type Severity Reaction Status Date / Time No Known Allergies Allergy Verified 05/14/24 08:10 Family History no significant family his Surgical History (Updated 05/14/24 @ 08:[address] Freddy Gandara MD) S/P ERCP History of appendectomy Social History household members: spouse housing: house Smoking Status: Current every day smoker (Patient did not smoke today) tobacco type: cigarettes Review of Systems (Anesthesia) ROS Narrative System reviewed and no additional complaints, except as documented.
--- NOTE | 2024-05-14 09:15 | GALL_PTH ---
PATIENT: KIMBERLEE NAVARRO LOC: MS3 U#:[id number] AGE/SX: 54/M ROOM: OK319 RE05/12/[address]: Dr. Suellen Ramirez MD : 1970 BED: 1 DIS: 05/14/2024 SPEC #: [id number] RECD: 05/14/24 10:12 STATUS: ELFEGO ALANIS #: [id number] SEBLE: 05/14/24 09:[address]: Franklin Lopez DEPT: SURGICAL PATHOLOGY RECD BY: Kai Ring ENTERED: 05/14/24 10:50 SP TYPE: GALLBLADDE DORA DR: MD Dr. Todd Moeller DO Dr. Eric Smith, MD Dr. Nana Yaa Koram, MD Tissues: Gallbladder, NOS Procedures: Surgery Specimen Level III HEADER OPERATION: Laparoscopic cholecystectomy with IOC PRE-OP DIAGNOSIS: Acute gallstone pancreatitis TISSUE SUBMITTED: Gallbladder MICROSCOPIC DIAGNOSIS Gallbladder, cholecystectomy: Chronic cholecystitis and cholelithiasis. CORBY. 05/17/2024 MICROSCOPIC DESCRIPTION Slides are reviewed. GROSS DESCRIPTION Received is one container labeled with the patient's name and designated gallbladder. The specimen consists of a gallbladder measuring 10.0 cm in length and up to 3.0 cm in diameter. The external surface is pink-mckeon, smooth and glistening for the most part. Focally it is granular, hemorrhagic and contains cautery artifact. The gallbladder contains green-yellow mucoid bile and multiple brown ovoid to multifaced stones measuring in aggregate 4.5 x 6.0 x 2.0 cm and 0.2 to 2.0 cm in greatest dimension. The mucosa is bile-stained and without any mass lesions. The gallbladder wall measures up to 0.2 cm in thickness. Acrobatic Dancer sections from the gallbladder and the cystic duct are submitted in one cassette. / SJ: 05/14/2024 TC:3 CPT: 63627
[2024-05-14] MEDS: Bupiv/Epi 0.25% 30 ML Vial (09:36)
--- NOTE | 2024-05-14 09:48 | OP.PCM_ITS ---
Operative Report (Standard) Operative Information Surgery/Procedure Performed: Laparoscopic cholecystectomy with cholangiograms Surgeon: Franklin Lopez Date of Procedure: 05/14/24 Procedure Start Time: :06 Procedure Stop Time: :42 Pre-Operative Diagnosis: Gallstone pancreatitis Post-Operative Diagnosis: Gallstone pancreatitis Select all DRAINS/GRAFTS/IMPLANTS that apply: None Type of Anesthesia: General/Regional Estimated Blood Loss: 15 Specimen collected: Yes Description of specimen(s) removed: Gallbladder Description of surgery: After obtaining informed consent patient was brought back to the operating room. General anesthesia was induced. The abdomen was prepped and draped in usual sterile fashion. A small midline incision was made superior to the umbilicus and deepened to the level of fascia. The fascia was elevated and incised. Next the peritoneum was elevated and incised in the same fashion. Finger sweep was performed and the Lima trocar was placed into the abdomen. The balloon was inflated. The abdomen was inflated to 15 mmHg. Next a camera was introduced into the abdomen and the abdomen was inspected. Next under direct visualization three 5-mm ports were placed one subxiphoid and 2 subcostal. Next the gallbladder was elevated and retracted toward the right shoulder. The peritoneum was stripped from the gallbladder. The infundibulum was located and retracted laterally. Next the triangle of Calot was dissected and the cystic duct and cystic artery were identified. Cholangiograms were performed. The Varghese clamp was used to clamp across the infundibulum and the catheter needle was inserted into the gallbladder. Under fluoroscopy contrast was instilled into the gallbladder and the common duct, cystic duct as well as proximal hepatic ducts were identified. There was good filling of the duodenum. There were no filling defects noted in the common bile duct. The clamp was removed as well as the needle and the infundibulum was grasped once more. Three hemolock clips were placed across the cystic duct. The cystic duct was then divided leaving 2 clips on the stump. The cystic artery was clipped and divided in the same fashion. The hook cautery was then used to take the gallbladder off of the gallbladder bed. Hemostasis was obtained. Gallbladder fossa was irrigated and no active bleeding or bile leakage was noted. Next the camera was introduced in the subxiphoid port. An Endopouch bag was placed through the umbilical port and the gallbladder was placed into it. The gallbladder was then removed through the umbilical incision. The camera was then reinserted through the umbilical port. The gallbladder fossa was inspected once more and noted to be hemostatic with no leaking bile. The abdomen was suctioned dry. The 5 mm ports were removed under direct visualization. The umbilical port was then removed and the air was removed from the abdomen. Next using an 0 Vicryl suture the umbilical fascia was closed in a [id number]-ax-nwiyj fashion. The umbilical port site was i rrigated local anesthetic was administered to all the incisions. All the incisions were closed with interrupted subcuticular 4-0 Monocryl sutures followed by Steri-Strips and dressings. The patient was awoken and taken to PACU in stable condition. Surgical Findings: Inflamed gallbladder, wound class contaminated Snow Removing Supervisor occupational therapy specialist: Yes Balance Bridge Inspector: Shahrzad Hodge Tasks completed by personnel security assistant: Opening, Closing and Retracting Complications Complications: No Admit VTE Documentation VTE Mechan Device Prophylaxis: SCD's
--- NOTE | 2024-05-14 09:53 | PCM.POST.ANE ---
Anesthesia: Postop Eval I Current Vital Signs Temperature: 98.4 F Pulse Rate: 87 Blood Pressure: 154/92 Respiratory Rate: 16 Pulse Ox: 99 Oxygen Delivery Method: Room Air Assessment Airway patent: Yes Spontaneous unlabored respirations: Yes Mental status: Awake and Calm nausea: No Vomiting: No Anesthesia Complication: No Fluid Hydration Crystalloid volume administer (ml): 1,000 Total IV fluid infused: 1,000 Progress Note Anesthesia document: Postop Eval 1 completed: Yes
[2024-05-14] MEDS: Lactated Ringers 1,000 ML 15 ML IV (10:17)
[2024-05-14] MEDS: Pantoprazole Sodium 40 MG in 0.9% Normal Saline (100mL MB+) 100 ML 330 MG IV (11:18)
[2024-05-14] MEDS: 0.9% Saline Lock 10 ML Syringe IV ×2 (11:18→12:23)
[2024-05-14] MEDS: Ketorolac 15 MG/ML Vial IV (11:18)
[2024-05-14] MEDS: oxyCODONE 5 MG Tablet PO ×2 (12:30→16:32)
--- NOTE | 2024-05-14 12:41 | DCINST_ITS ---
Discharge Instructions Diet Discharge Diet: Light diet - advance as tolerated Activity Discharge Activity: May Not Drive (for 2-3 days or while taking narcotic pain medications.) and - (Do not drive, work heavy equipment or sign legal documents for 24 hours.) May shower in (days): 1 Lifting Restrictions: 20 lbs for 2 weeks Additional Activity Instructions:: Pain medication may cause nausea. You should typically eat light foods as you take your pain medications. Pain medication may also cause constipation. If this is a problem for you, please discuss with your doctor. Dressing / Incision Call your doctor if your incision/area has: Continuous Slow Oozing, Sudden Increased Bleeding, Increased Pain/ Swelling, Increased Redness and Foul Smelling Discharge Call your doctor if you observe: Fever of 101 or Higher Suture Line Care: Avoid Pulling/Pushing and Avoid Pinching/Bending Remove Dressing in: 2 days Additional Dressing/Incision Instructions:: Leave operative bandaids on for 2 days. When you remove dressing, leave Steri-Strips on until your follow-up appointment, or until the Steri-Strips fall off on their own. Follow Up Care Please Follow Up With: Franklin Lopez MD When: Please call to schedule 2 week follow up appointment. [phone] Test Results: Test results from this visit will be discussed in further detail at your follow- up appointment, if applicable. Discharge Plan Admission Admit Date/Time: 05/12/24 00:01 Primary Reason for Your Visit: Acute Gallstone pancreatitis w/ choledocholithiasis, elevated bilirubin/LFT Attending Provider: Suellen Ramirez Primary Care Provider: Ifeanyi Laurent Consulting Providers: Todd Jon; Franklin Lopez; Krystle Kaiser Discharge Orders/Prescriptions Prescriptions: No Action NK Referrals / Follow Up: Franklin Lopez MD [Med Staff - Active Staff] - Ifeanyi Laurent MD [Primary Care Provider] - (Follow-up within 3-5 days to review admission.) Disposition Disposition (needs filled in before D/C Order can be placed): Home, Self Care
--- NOTE | 2024-05-14 12:50 | DCINST_ITS ---
Discharge Instructions Diet Discharge Diet: Light diet - advance as tolerated Activity Discharge Activity: - (Activity parameters per surgery plan of care as noted.) May shower in (days): 1 May resume sexual activity in: - (Activity parameters per surgery plan of care as noted.) Weight Bearing Status: Weight bearing as tolerated Additional Activity Instructions:: Pain medication may cause nausea. You should typically eat light foods as you take your pain medications. Pain medication may also cause constipation. If this is a problem for you, please discuss with your doctor. Dressing / Incision Call your doctor if your incision/area has: Continuous Slow Oozing, Sudden Increased Bleeding, Increased Pain/ Swelling, Increased Redness and Foul Smelling Discharge Call your doctor if you observe: Fever of 101 or Higher Suture Line Care: Avoid Pulling/Pushing and Avoid Pinching/Bending Additional Dressing/Incision Instructions:: Leave operative bandaids on for 2 days. When you remove dressing, leave Steri-Strips on until your follow-up appointment, or until the Steri-Strips fall off on their own. Follow Up Care Please Follow Up With: Franklin Lopez MD Test Results: Test results from this visit will be discussed in further detail at your follow- up appointment, if applicable. Discharge Plan Admission Admit Date/Time: 05/12/24 00:01 Primary Reason for Your Visit: Acute Gallstone pancreatitis w/ choledocholithiasis, elevated bilirubin/LFT Attending Provider: Suellen Ramirez Primary Care Provider: Ifeanyi Laurent Consulting Providers: Todd Jon; Franklin Lopez; Krystle Kaiser Instructions Patient Instructions: After Gallbladder Surgery, Cholecystectomy Dc Discharge Orders/Prescriptions Prescriptions: New oxycodone 5 mg Tablet 5 mg PO Q4H PRN PRN (Reason: Pain Score 4-10) 5 Days Qty: 20 0RF No Action NK Referrals / Follow Up: Franklin Lopez MD [Med Staff - Active Staff] - (Follow-up with Dr. Lopez as requested in 2 weeks. Call earlier in any concerns arise.) Ifeanyi Laurent MD [Primary Care Provider] - (Follow-up within 3-5 days to review admission.) Disposition Disposition (needs filled in before D/C Order can be placed): Home, Self Care
--- NOTE | 2024-05-14 12:51 | PCM.DC.SUM ---
Providers Date of Admission: 05/12/24 Date of Discharge: 05/14/24 Primary Care Physician: Dr. Ifeanyi Laurent MD Consultations 05/12/24 00:44 Consult: Gastroenterology Routine Consulting Provider: [facility] Reason for Consult: Acute Gallstone Pancreatitis. EMERGENT Consult: No Notified: Yes Date Notified: 05/12/24 Time Notified: 06:07 Method of Notification: Text 05/12/24 07:53 Consult: General Surgery Routine Consulting Provider: Franklin Lopez Reason for Consult: acute gallstone pancreatitis EMERGENT Consult: No Notified: Yes Date Notified: 05/12/24 Time Notified: 07:53 Method of Notification: Text Reason For Visit: ACUTE GALLSTONE PANCREATITIS Diagnosis Discharge Diagnosis (1) Acute gallstone pancreatitis: Status: Acute Code(s): K85.10 - Biliary acute pancreatitis without necrosis or infection Plan: DISCHARGE DIAGNOSES: #1. Acute Gallstone pancreatitis with evidence of choledocholithiasis with significant transaminitis and hyperbilirubinemia w/ abdominal pain, N/V #2. Abnormal urinalysis, no concern for UTI is asymptomatic #3. Overweight #4. Tobacco Abuse Medications at Discharge Home Medications NK 05/12/24 oxycodone 5 mg tablet 5 mg PO Q4H PRN PRN Pain Score 4-10 5 days #20 tabs 05/14/24 Hospital Course Operations ERCP (05/12/[address] Lazo.) and - (05/14/24 Laparoscopic cholecystectomy with cholangiograms per Dr. Lopez.) Procedures EKG Summary of Care Provided Minutes Spent on Discharge: 35 Hospital Course: The patient is a 54 y/o M w/ PMHx: Overweight, Tobacco use who presenTED to the [facility] ED on 05/11/2024 with frequent histories of postprandial approximate 2 to 3-hour following epigastric and right upper quadrant discomfort with episodes of nausea and emesis however on evening prior to his presentation he had similar presentation but it was more constant and was not going away prompting him to present for evaluation. ED presentation with total bilirubin 3.70, AST/LT 184/596, lipase greater than 250 with lipase julia 05/12/2024 at 988. Patient admitted to medical surgical floor, underwent ERCP 05/12/2020 with evidence of choledocholithiasis with the entire biliary tree noted to be mildly dilated with a stone causing obstruction with removal with biliary sphincterotomy and balloon extraction, pancreatic sphincterotomy, ventral pancreatic duct swept with nothing found, biliary sphincterotomy with 1 temporary stent placed in the ventral pancreatic duct. 05/14/2024 laparoscopic cholecystectomy with cholangiogram performed per Dr. Lopez. Maintained on IV zosyn until intervention and de-escalated off. 05/13/2024 total bilirubin 1.20, AST/LT 23/262, lipase 174->05/14/24 T. bili 1.0, AST/LT 12/165, alk phos 49, continued to improve. Patient instructed to follow-up with general surgeon, primary care physician and gastroenterology. DAY OF DISCHARGE PROGRESS NOTE: Subjective: Patient without acute event overnight per self and nursing report. Patient prior to OR had no abdominal pain and felt improved. Following operative intervention cholecystectomy patient did report 6 out of 10 pain in PACU with no nausea or emesis. He denied any recent fever, chills, chest pain or dyspnea. Patient amenable to discharge to home once tolerating diet and pain improved. Patient will be discharged with follow-up with primary care physician as well as gastroenterology and general surgery. Objective: T97.8, heart rate 81, BP 118/83, respiratory rate 18, 94% room air. Physical Examination: General: awake, alert, oriented x 3, cooperative, laying in the PACU bed, fatigued, notes pain following recent operative intervention but otherwise doing well. Skin: normal color, turgor, no icterus, cyanosis except for recent OR with laparoscopic cholecystectomy with incisions dressed with no drainage. HEENT: AT/NC, EOMI, PERRLA, mildly dry MM. Lungs: CTA bilaterally, moderate effort, mild decrease BL bases, no rales, ronchi or wheezing; Heart: Regular rate and rhythm; no gallop, rub audible. Abdomen: soft, expected TTP given recent OR, not markedly distended, mildly decreased bowel sounds. Extremities: no cyanosis, clubbing, or edema. Neurological: patient awake, alert, oriented as noted, cognitive function appears intact upon questioning,; pupils equally reactive to light and accommodation cranial nerves gross normal, moving all 4 extremities, strength moderately globally creased given recent or as expected Psychiatric: affect appears fatigued as expected given recent sedation status post OR, no acute evidence of depressive or anxiety feelings. Assessment and Plan: Please see hospital summary above. Weight / BMI Weight Weight: 210 lb 12.191 oz Body Mass Index (BMI) 28.5 ABG / Lab / Microbiology Data 05/14/24 05:53 05/14/24 05:53 Laboratory: Laboratory Results - last 24 hr 05/14/24 05:53: WBC 11.1 H, RBC 4.66, Hgb 13.3, Hct 40.4, MCV 86.7, MCH 28.5, MCHC 32.9, RDW Std Deviation 41.9, RDW Coeff of Judy 13.3, Plt Count 215, MPV 9.6, Immature Gran % (Auto) 0.400, Neut % (Auto) 68.5, Lymph % (Auto) 16.3 L, Schuyler % (Auto) 10.9 H, Eos % (Auto) 3.6, Baso % (Auto) 0.3, Absolute Neuts (auto) 7.6, Absolute Lymphs (auto) 1.81, Nucleated RBC % 0, Sodium 138, Potassium 3.6, Chloride 106, Carbon Dioxide 27.0, Anion Gap 4 L, BUN 14, Creatinine 0.89, Estim Creat Clear Calc 112.48, Est GFR (MDRD) Af Amer 114, Est GFR (MDRD) Non-Af 94, BUN/Creatinine Ratio 15.7, Glucose 95, Calcium 8.7, Total Bilirubin 1.00, AST 12 L, ALT 165 H, Alkaline Phosphatase 49, Total Protein 6.5, Albumin 3.3, Globulin 3.2, Albumin/Globulin Ratio 1.0 D/C Instructions Discharge Diet: Light diet - advance as tolerated May shower in (days): 1 May resume sexual activity in: - (Activity parameters per surgery plan of care as noted.) Weight Bearing Status: Weight bearing as tolerated Additional Activity Instructions: Pain medication may cause nausea. You should typically eat light foods as you take your pain medications. Pain medication may also cause constipation. If this is a problem for you, please discuss with your doctor. Call your doctor if your incision/area has: Continuous Slow Oozing, Sudden Increased Bleeding, Increased Pain/ Swelling, Increased Redness and Foul Smelling Discharge Call your doctor if you observe: Fever of 101 or Higher Suture Line Care: Avoid Pulling/Pushing and Avoid Pinching/Bending Additional Dressing/Incision Instructions: Leave operative bandaids on for 2 days. When you remove dressing, leave Steri-Strips on until your follow-up appointment, or until the Steri-Strips fall off on their own. Please Follow Up With: Franklin Lopez MD When: Please call to schedule 2 week follow up appointment. [phone] Meaningful Use Info Meaningful Use Meaningful Use Diagnoses (Choose all that apply): None applicable Ischemic Stroke Statin Dosing Therapy Reference: STATIN DOSE THERAPY REFERENCE: * Patients > 75 years receive moderate or high dose statin therapy. * Patients 75 years or YOUNGER should receive HIGH intensity statin dose unless contraindicated. You will be required to document reason for non-treatment if statin daily dose does not meet guidelines. HIGH DOSE STATIN THERAPY DAILY Atorvastatin > than or = to 40 mg Rosuvastatin > than or = to 20 mg Amlodipine + Atorvastatin > than or = to 2.5/40 mg Ezetimibe + Simvastatin 10/80 mg Simvastatin 80mg Discharge Plan Admission Admit Date/Time: 05/12/24 00:01 Primary Reason for Your Visit: Acute Gallstone pancreatitis w/ choledocholithiasis, elevated bilirubin/LFT Attending Provider: Suellen Ramirez Primary Care Provider: Ifeanyi Laurent Consulting Providers: Todd Jon; Franklin Lopez; Krystle Kaiser Instructions Patient Instructions: After Gallbladder Surgery, Cholecystectomy Dc Discharge Orders/Prescriptions Prescriptions: New oxycodone 5 mg Tablet 5 mg PO Q4H PRN PRN (Reason: Pain Score 4-10) 5 Days Qty: 20 0RF No Action NK Referrals / Follow Up: Franklin Lopez MD [Med Staff - Active Staff] - (Follow-up with Dr. Lopez as requested in 2 weeks. Call earlier in any concerns arise.) Ifeanyi Laurent MD [Primary Care Provider] - (Follow-up within 3-5 days to review admission.) Damir Lazo DO [Med Staff - Active Staff] - (Follow-up within 1-2 weeks for reevaluation given recent temporary stent placement.) Disposition Disposition (needs filled in before D/C Order can be placed): Home, Self Care Charges/Coding Visit Charges Inpatient E&M: 13913 Disch Hosp >30min
--- NOTE | 2024-05-14 16:10 | PHA.DC_ITS ---
Pharmacy [facility] has performed discharge medication reconciliation and counseling for this patient. The patient's discharge medication list was reviewed for discrepancies and discrepancies were resolved. The patient was counseled on the following discharge medications and changes in medications for homegoing were reviewed. 1. OXYCODONE The Reason for Use, instructions for use, and potential side effects were reviewed for all new medications. The patient's questions regarding all of their medications were answered. The patient was able to verbally demonstrate an understanding of their discharge medications. The patient was counselled by Aaron Hoang PharmD Candidate Medications at Discharge Home Medications NK 05/12/24 oxycodone 5 mg tablet 5 mg PO Q4H PRN PRN Pain Score 4-10 5 days #20 tabs 05/14/24
--- NOTE | 2024-05-14 17:25 | POSTOPAN2_ITS ---
Anesthesia Postop Eval I Sum Postop Eval Completion status Anesthesia document: Postop Eval 1 completed: Yes Anesthesia Postop Eval I Summary Anesthesia Postop Eval I Summary: Anesthesia Postop Eval I: Assessment Summary Airway patent Yes 05/14/24 09:54 [email or web address] Spontaneous unlabored Yes 05/14/24 09:54 [email or web address] respirations Mental status Awake,Calm 05/14/24 09:54 [email or web address] nausea No 05/14/24 09:54 [email or web address] Vomiting No 05/14/24 09:54 [email or web address] Anesthesia Postop Eval I: Fluid Summary Crystalloid volume administer 1,000 05/14/24 09:54 [email or web address] (ml) Colloids volume administered ( ml) Blood Product volume administered (ml) Total IV fluid infused 1,000 05/14/24 09:54 [email or web address] Anesthesia Postop Eval I: Summary Notes Anesthesia Complication No 05/14/24 09:54 [email or web address] Anesthesia Complication Comment: Post-operative progress note Anesthesia: Postop Eval II Evaluation Mental status: Awake and Calm Pain Level: 1 nausea: No Vomiting: No Complications Anesthesia Complication: No
--- NOTE | 2024-05-14 17:25 | PCM.POSTANE2 ---
Anesthesia Postop Eval I Sum Postop Eval Completion status Anesthesia document: Postop Eval 1 completed: Yes Anesthesia Postop Eval I Summary Anesthesia Postop Eval I Summary: Anesthesia Postop Eval I: Assessment Summary Airway patent Yes 05/14/24 09:54 GUITAR REPAIR [email or web address] Spontaneous unlabored Yes 05/14/24 09:54 GUITAR REPAIR [email or web address] respirations Mental status Awake,Calm 05/14/24 09:54 GUITAR REPAIR [email or web address] nausea No 05/14/24 09:54 GUITAR REPAIR [email or web address] Vomiting No 05/14/24 09:54 GUITAR REPAIR [email or web address] Anesthesia Postop Eval I: Fluid Summary Crystalloid volume administer 1,000 05/14/24 09:54 GUITAR REPAIR [email or web address] (ml) Colloids volume administered ( ml) Blood Product volume administered (ml) Total IV fluid infused 1,000 05/14/24 09:54 GUITAR REPAIR [email or web address] Anesthesia Postop Eval I: Summary Notes Anesthesia Complication No 05/14/24 09:54 GUITAR REPAIR [email or web address] Anesthesia Complication Comment: Post-operative progress note Anesthesia: Postop Eval II Evaluation Mental status: Awake and Calm Pain Level: 1 nausea: No Vomiting: No Complications Anesthesia Complication: No
--- NOTE | 2024-05-14 17:26 | ANES.CONFIRM ---
Anesthesia: Confirm Documents Multiple Procedures on Account (2) Confirmed Documents: Yes
== END 2024-05-14 16:47 | disposition home or self-care (01) | DRG 417 ==
LOC: ED 23:59 → MS3 05-12 00:19
PROVIDERS: Internal Medicine Gastroenterology; Physician Assistant; Surgery; Admitting Provider Internal Medicine; Emergency Provider Emergency Medicine; PCP Family Medicine; Visit Provider Family Medicine
PROC: 0FC98ZZ Extirpation of Matter from Common Bile Duct, Via Natural or Artificial Opening Endoscopic (ICD-10-PCS; CPT 43260; principal; 2024-05-12 15:40)
PROC: 0FT44ZZ Resection of Gallbladder, Percutaneous Endoscopic Approach (ICD-10-PCS; CPT 47610; principal; 2024-05-14 09:00)
DX: K80.51 Calculus of bile duct without cholangitis or cholecystitis with obstruction (principal); K85.10 Biliary acute pancreatitis without necrosis or infection; K76.0 Fatty (change of) liver, not elsewhere classified; K83.8 Other specified diseases of biliary tract; K80.20 Calculus of gallbladder without cholecystitis without obstruction; F17.210 Nicotine dependence, cigarettes, uncomplicated; E80.7 Disorder of bilirubin metabolism, unspecified; D75.1 Secondary polycythemia; E66.3 Overweight; Z68.27 Body mass index [BMI] 27.0-27.9, adult
CPT/HCPCS: 36415; 74177; 74300; 74330; 76000; 76705; 80053; 81001; 83690; 83735; 84100; 84443; 85025; 88304; 93005; 94668; 99284; Q9967; A4216; J2405

== ENCOUNTER → 2024-05-28 | Outpatient (CLI) | payer BC, SELFPAY ==
--- NOTE | 2024-05-28 12:10 | RAD_ITS ---
EXAM: XR ABDOMEN, 1 VIEW CLINICAL INDICATION: pancreatic stent TECHNIQUE: Frontal supine view of the abdomen/pelvis. COMPARISON: No relevant prior studies available. FINDINGS: LOWER THORAX: No acute pathology. GASTROINTESTINAL TRACT: Unremarkable. Non-obstructive. No bowel or stomach distention. ORGANS: See below. BONES/JOINTS: There is a linear density to the right of the thoracolumbar spine apparently represents a pancreatic stent. This was seen on previous ERCP and is unchanged in position. SOFT TISSUES: No acute pathology. RAD/Abdomen Single View IMPRESSION: Linear stent to the right of the thoracolumbar spine compatible with a pancreatic stent. No other abnormalities are identified. Electronically Signed: Clifton Sandoval MD at 0:00 EST ,
[2024-05-28 13:04] LABS: ALB/GLOB Ratio 1.1 RATIO (0.9-2.4); AST(SGOT) 10 U/L (15-37); Alanine Aminotransfer ALT/SGPT 45 U/L (16-61); Albumin, Serum 3.7 g/dL (3.2-5.0); Alkaline Phosphatase 41 U/L (45-117); Anion Gap 5 (5-15); BUN 14 mg/dL (7-18); BUN/Creat Ratio 16.2 RATIO (10-20); Calcium,Total 9.5 mg/dL (8.5-10.1); Chloride 108 mmol/L (98-107); Creatinine, Serum 0.86 mg/dL (0.70-1.30); EST Glomerular Filtration Rate 98 mL/min (>60); Est Glom Filt Rate - Afr Amer 118 mL/min (>60); Globulin 3.4 g/dL (2.2-4.2); Glucose 98 mg/dL (74-106); Potassium 3.9 mmol/L (3.5-5.1); Protein, Total 7.1 g/dL (6.4-8.2); Sodium Level 140 mmol/L (136-145)
== END | disposition home or self-care (01) ==
LOC: LAB 12:02
PROVIDERS: PCP Family Medicine; Referring Provider Student in an Organized Health Care Education/Training Program; Visit Provider Student in an Organized Health Care Education/Training Program
DX: Z09 Encounter for follow-up examination after completed treatment for conditions other than malignant neoplasm (principal); Z90.49 Acquired absence of other specified parts of digestive tract; Z98.890 Other specified postprocedural states
CPT/HCPCS: 36415; 74018; 80053

== ENCOUNTER → 2024-06-14 | Outpatient (CLI) | payer BC, SELFPAY ==
--- NOTE | 2024-06-14 09:39 | RAD_ITS ---
STUDY: X-RAY - ABDOMEN/PELVIS REASON FOR EXAM: Male, 54 years old. pancreatic stent TECHNIQUE: Single AP view of the abdomen / pelvis. COMPARISON: 05/28/2024 FINDINGS: Pancreatic duct stent. There is an unremarkable bowel gas pattern. The visualized liver, spleen and kidneys are grossly normal in size and morphology. Normal soft tissue structures. Normal visualized osseous structures. RAD/Abdomen Single View IMPRESSION: Normal x-ray examination of the abdomen and pelvis. Pancreatic duct stent. Electronically Signed: Padilla Araujo MD at 10:10 [facility] ,
== END | disposition home or self-care (01) ==
LOC: RAD 09:39
PROVIDERS: PCP Family Medicine; Referring Provider Student in an Organized Health Care Education/Training Program; Visit Provider Student in an Organized Health Care Education/Training Program
DX: Z98.890 Other specified postprocedural states (principal); Z96.89 Presence of other specified functional implants
CPT/HCPCS: 74018

== ENCOUNTER → 2024-08-31 | Outpatient (CLI) | payer BC, SELFPAY ==
--- NOTE | 2024-08-31 10:10 | RAD_ITS ---
PROCEDURE: ABDOMEN SINGLE VIEW REASON FOR EXAM: Biliary stent. TECHNIQUE: Single view abdomen. COMPARISON: Supine abdomen dated 06/14/2024. FINDINGS: Bowel gas pattern is normal. No evidence of bowel obstruction. No suspicious calcifications. The bones are unremarkable. Pancreatic duct stent redemonstrated and maintains its position. RAD/Abdomen Single View IMPRESSION: Stable supine abdomen when compared to the previous study dated 06/14/2024. Reading Location: [facility]
== END | disposition home or self-care (01) ==
LOC: RAD 10:07
PROVIDERS: PCP Family Medicine; Referring Provider Internal Medicine Gastroenterology; Visit Provider Internal Medicine Gastroenterology
DX: Z96.89 Presence of other specified functional implants (principal); Z98.890 Other specified postprocedural states
CPT/HCPCS: 74018

== ENCOUNTER 2024-09-01 12:30 | Day surgery (SDC) | payer BC, SELFPAY ==
--- NOTE | 2024-08-30 18:00 | PAT.ANE_ITS ---
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 When Was Last Pacemaker Check QUESTION #4 FULL TEXT: You/Your Family Experience fever (hyperthermia) with Anesthesia Last Oral Intake Last Oral intake: Last Oral Intake NPO since Meds taken in AM with sips of water? Meds patient instructed to take am of surgery PONV PONV - head inspector and center marker: PONV - head inspector and center marker Female No 08/30/24 14:35 HX of Motion Sickness No 08/30/24 14:35 HX of N/V After Surgery No 08/30/24 14:35 Non-Smoker Yes 08/30/24 14:35 Duration of Surgery greater No 08/30/24 14:35 than 60 minutes Number of Risk Factors 1 08/30/24 14:35 PONV Score Low Risk 08/30/24 14:35 Height & Weight Height & Weight: Anesthesia: Height & Weight Height 6 ft 05/14/24 07:18 Respiratory Assessment Respiratory Assessment - head inspector and center marker: Respiratory Tract Infection Hx - head inspector and center marker Hx Respiratory Tract Infection No 08/30/24 14:35 STOP Sleep Apnea STOP Sleep Apnea - head inspector and center marker: STOP Sleep Apnea - head inspector and center marker Hx Hypertension No 08/30/24 14:35 Hx Sleep Apnea No 08/30/24 14:35 CPAP No 05/14/24 09:50 BIPAP Do you snore loudly (louder No 08/30/24 14:35 than talking or can be heard Do you often feel tired/ No 08/30/24 14:35 fatigued/ sleepy during daytime? Has anyone observed you stop No 08/30/24 14:35 breathing during sleep? STOP Results Negative 08/30/24 14:35 QUESTION #5 FULL TEXT : Do you snore loudly (louder than talking or can be heard through closed doors)? 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 Specify any problems Hx of Preganancy in last 3 N/A 08/30/24 14:35 Months Nurse Filling Out Transfusion [email or web address] 08/30/24 14:35 & Questions: Date: 08/30/24 08/30/24 14:35 Time: 14:39 08/30/24 14:35 Patient unable to answer at this time (ie. confused, unrespo /Reproduction History /Reproductive History - head inspector and center marker: /Reproductive Hx- head inspector and center marker Hx Now Gestational Age (in weeks): EDC: Hx Hx Para Hx Section SAB No 05/12/24 00:58 PFSH Medical History (Updated 08/30/24 @ 14:42 by George Kurtz) Wears glasses Polycythemia Overweight (BMI 25.0-29.9) Tobacco abuse Home Medications ?Medication ?Instructions ?Recorded ?Last Taken ?Type NK 08/30/24 Unknown History Allergy/AdvReac Type Severity Reaction Status Date / Time No Known Allergies Allergy Verified 08/30/24 14:33 Surgical History S/P laparoscopic cholecystectomy S/P ERCP History of appendectomy Social History household members: spouse housing: house Smoking Status: Former smoker Audit: Pertinent Findings Pertinent Findings EKG Perinent findings: EKG 05/12/2024: Vent. Rate : 58 BPM Atrial Rate : 58 BPM P-R Int : 142 ms QRS Dur : 88 ms QT Int : 420 ms P-R-T Axes : 47 10 18 degrees QTcB Int : 412 ms Sinus bradycardia Otherwise normal ECG When compared with ECG of 08-Feb-2002 11:15, MD interval has increased Vent. rate has decreased by 89 bpm Questionable change in QRS axis Recommendation Anesthesia Recommendation Anesthesia recommendation: OPTIMIZED for anesthesia
[2024-09-01] VITALS (9 sets, daily range): BP systolic 120–130; BP diastolic 73–97; PULSE 58–69; RESP 14–18; TEMP 36–36.3; O2SAT 95–99; BMI 28.0
--- NOTE | 2024-09-01 12:45 | EKG12_ITS ---
Test Reason : PREOP Blood Pressure : */* mmHG Vent. Rate : 63 BPM Atrial Rate : 63 BPM P-R Int : 138 ms QRS Dur : 76 ms QT Int : 394 ms P-R-T Axes : 50 -11 14 degrees QTcB Int : 403 ms Normal sinus rhythm Normal ECG Confirmed by Kvng uJdge ([id number]), document specialist RAYMOND NAQVI ([id number]) on 09/06/2024 10:57:47 AM Referred By: Damir Friend Confirmed By: Kvng Judge
--- NOTE | 2024-09-01 13:27 | PCM.PRE.AN2 ---
ASA Classification* ASA Classification ASA Classification: 2 Assessment & Plan Anesthesia* Anesthesia Assessment Anesthesia Assessment: Discussed sedation and/or anesthesia options, risks, benefits, and alternatives with patient/parents/legal guardian/POA. Questions invited. The patient/parents/legal guardian/POA seems to understand and agrees to proceed with anesthesia plan. Reviewed the physical assessment, medical history, allergy history and patient home medications list prior to surgery/procedure/anesthetic and documented any changes. Performed airway and anesthesia risk assessments. Anesthesia Type Anesthesia Type: General History Source History Obtained from:: Patient and Chart Anesthesia Focused Assessment* Temperature: 97.2 F Pulse Rate: 65 Blood Pressure: 130/96 Respiratory Rate: 14 Pulse Ox: 99 Oxygen Delivery Method: Room Air Airway Assessment Mouth opens: >3 cm Mallampati Score: II Teeth Condition: Intact and Missing (top right back tooth missing; bottom left last tooth missing) Neck Range of motion (ROM): Full ROM Focused Labs Anesthesia Preop lab: CBC WBC 11.1 K/mm3 (4.4-11.0) H 05/14/24 05:53 05/14/24 RBC 4.66 M/mm3 (4.6-6.2) 05/14/24 05:53 05/14/24 Hgb 13.3 g/dL (13.0-16.5) 05/14/24 05:53 05/14/24 Hct 40.4 % (40-54) 05/14/24 05:53 05/14/24 Plt Count 215 K/mm3 (150-450) 05/14/24 05:53 05/14/24 CHEMISTRY Potassium 3.9 mmol/L (3.5-5.1) 05/28/24 12:05 05/28/24 Sodium 140 mmol/L (136-145) 05/28/24 12:05 05/28/24 Magnesium 1.9 mg/dL (1.6-2.6) 05/12/24 05:51 05/12/24 Phosphorus 3.6 mg/dL (2.5-4.9) 05/12/24 05:51 05/12/24 BUN 14 mg/dL (7-18) 05/28/24 12:05 05/28/24 Creatinine 0.86 mg/dL (0.70-1.30) 05/28/24 12:05 05/28/24 Glucose 98 mg/dL (74-106) 05/28/24 12:05 05/28/24 TSH 1.190 uIU/mL (0.358-3.740) 05/12/24 05:51 05/12/24 COAG Pre-Assessment Diagnosis/Proposed Procedure Planned Operative Procedure(s): ERCP Anesthesia History 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 When Was Last Pacemaker Check QUESTION #4 FULL TEXT: You/Your Family Experience fever (hyperthermia) with Anesthesia Last Oral Intake Last Oral intake: Last Oral Intake NPO since 08:00 09/01/24 12:54 Meds taken in AM with sips of water? Meds patient instructed to take am of surgery PONV PONV - leather colorer: PONV - leather colorer Female No 08/30/24 14:35 HX of Motion Sickness No 08/30/24 14:35 HX of N/V After Surgery No 08/30/24 14:35 Non-Smoker Yes 08/30/24 14:35 Duration of Surgery greater No 08/30/24 14:35 than 60 minutes Number of Risk Factors 1 08/30/24 14:35 PONV Score Low Risk 08/30/24 14:35 Height & Weight Height & Weight: Anesthesia: Height & Weight Height 6 ft 09/01/24 12:54 Weight: 94 kg 09/01/24 12:54 Body Mass Index (BMI) 28.0 09/01/24 12:54 Respiratory Assessment Respiratory Assessment - leather colorer: Respiratory Tract Infection Hx - leather colorer Hx Respiratory Tract Infection No 08/30/24 14:35 STOP Sleep Apnea STOP Sleep Apnea - leather colorer: STOP Sleep Apnea - leather colorer Hx Hypertension No 08/30/24 14:35 Hx Sleep Apnea No 08/30/24 14:35 CPAP No 05/14/24 09:50 BIPAP Do you snore loudly (louder No 08/30/24 14:35 than talking or can be heard Do you often feel tired/ No 08/30/24 14:35 fatigued/ sleepy during daytime? Has anyone observed you stop No 08/30/24 14:35 breathing during sleep? STOP Results Negative 08/30/24 14:35 QUESTION #5 FULL TEXT : Do you snore loudly (louder than talking or can be heard through closed doors)? Tobacco Use History Tobacco Use History - leather colorer: Tobacco Use History - leather colorer Tobacco Use Smoking Status Former smoker 08/30/24 14:35 Hx Tobacco Use Yes 08/30/24 14:35 Years Smoking Packs Smoked per Day Smoking Cessation Date was Yes - quit smoking within 15 08/30/24 14:35 within the last 15 years years Hx Smoking Cessation Date 05/10/24 08/30/24 14:35 Hx Smoking Cessation Counseling Hematologic Medial History Hematologic Hx - leather colorer: Hematologic Medical Hx - poker in Hx of Blood Transfusion No 08/30/24 14:35 Hx of Transfusion in last 3 No 08/30/24 14:35 Months Date of Last Transfusion (if within last 3 months) Ever experience any problems No 08/30/24 14:35 with transfusion(s)? Specify any problems Hx of Preganancy in last 3 N/A 08/30/24 14:35 Months Nurse Filling Out Transfusion [email or web address] 08/30/24 14:35 & Questions: Date: 08/30/24 08/30/24 14:35 Time: 14:39 08/30/24 14:35 Patient unable to answer at this time (ie. confused, unrespo /Reproduction History /Reproductive History - leather colorer: /Reproductive Hx- leather colorer Hx Now Gestational Age (in weeks): EDC: Hx Hx Para Hx Section SAB No 05/12/24 00:58 PFSH Medical History Wears glasses Polycythemia Overweight (BMI 25.0-29.9) Tobacco abuse Home Medications ?Medication ?Instructions ?Recorded ?Last Taken ?Type NK 08/30/24 Unknown History Allergy/AdvReac Type Severity Reaction Status Date / Time No Known Allergies Allergy Verified 09/01/24 12:52 Surgical History S/P laparoscopic cholecystectomy S/P ERCP History of appendectomy Social History household members: spouse housing: house Smoking Status: Current every day smoker (Patient did not smoke today) tobacco type: cigarettes Review of Systems (Anesthesia) ROS Narrative System reviewed and no additional complaints, except as documented. Physical Exam Const alert and oriented x3 HEENT HEENT Narrative: glasses Neck full ROM Resp normal respiratory effort and normal air movement Cardio regular rate Neuro oriented x3 and moves all extremities
--- NOTE | 2024-09-01 13:30 | FLU_PTH ---
PATIENT: KIMBERLEE NAVARRO LOC: EN U#:[id number] AGE/SX: 54/M ROOM: RE09/01/[address]: Dr. Damir Lazo DO : 1970 BED: DIS: 09/01/2024 SPEC #: [id number] RECD: 09/01/24 14:48 STATUS: ELFEGO ANNABELLE #: [id number] SEBLE: 09/01/24 13:[address]: Damir Lazo DEPT: CYTOLOGY RECD BY: Kai Ring ENTERED: 09/02/24 06:58 SP TYPE: Fluid OTHR DR: Dr. Ifeanyi Laurent MD Tissues: Pancreatic duct, NOS Procedures: Special Stain Group II Special Stain Group I Surgery Specimen Level IV Surgery Specimen Level V GMS Stain (control) Cytospin Fluid HEADER OPERATION: ERCP with stent pull PRE-OP DIAGNOSIS: Abdominal pain, acute, epigastric, status post ERCP TISSUE SUBMITTED: Pancreatic stent DIAGNOSIS CYTOLOGY Pancreatic stent fluid for cytology (cytospins and cellblock): Negative for malignant cells. Acute inflammation. See comment. mr 09/03/2024 COMMENT Organisms consistent with bacteria are noted. Special stain for fungi is positive for organisms (yeast and pseudohyphae) consistent with Alina species; matched control is appropriate. Clinical correlation and appropriate follow up are necessary. CYTOLOGY STUDY Slides are reviewed. CYTOLOGY GROSS Received is a green 9cm stent with 0.2 ml of thick white material labeled with the patient's name and and designated per the requisition as Pancreatic stent. Submitted for cytology preparation including cell block. Mr 09/02/2024 TC:2 CPT: 47674,70348,32238
--- NOTE | 2024-09-01 13:48 | HP.PCM_ITS ---
HPI - General General Date of Admission: 09/01/24 Date of Service: 09/01/24 Chief Complaint: stent removal HPI Narrative KIMBERLEE NAVARRO, is a 54 M who presentsChief Complaint: s/p ERCP and lap ervin for gallstone pancreatitis Details: KIMBERLEE NAVARRO, is a 54 M who presents to the office today for hospital f/u. *[facility] ED 05.11.24 for abdominal pain and found to have gallstone pancreatitis. Underwent ERCP and cholecystectomy CT abdomen pelvis 05.10.24; Acute pancreatitis without complications. Gallbladder US .11.27; Cholelithiasis and gallbladder wall thickening but no definite acute cholecystitis. Hepatic steatosis suggested OV 05.28.24 Pt has been doing well since his surgery. He is having some RUQ pain that is new over the past week. He saw surgery this morning for f/u and they said the healing process is going well. He is able to eat but is having increased bloating. He is eating small meals more frequently. His bowels have been normal but did have diarrhea once last night. Since being the hospital he has stopped smoking. [facility] Medical History Wears glasses Polycythemia Overweight (BMI 25.0-29.9) Tobacco abuse Home Medications ?Medication ?Instructions ?Recorded ?Last Taken ?Type NK 08/30/24 Unknown History Allergy/AdvReac Type Severity Reaction Status Date / Time No Known Allergies Allergy Verified 09/01/24 12:52 Surgical History S/P laparoscopic cholecystectomy S/P ERCP History of appendectomy Social History household members: spouse housing: house Smoking Status: Current every day smoker (Patient did not smoke today) tobacco type: cigarettes ROS Constitutional Constitutional: Denies fatigue, fever(s), poor appetite, weight gain or weight loss Gastrointestinal Gastrointestinal: Denies belching, bloating, change in bowel habits, change in stool character, chewing difficulty, coffee ground emesis, constipation, cramping, diarrhea, dyspepsia, dysphagia, early satiety, excessive flatus, fecal incontinence, heartburn, hematemesis, hematochezia, hemorrhoids, loose stools, melena, nausea, odynophagia, rectal bleeding, tenesmus, vomiting or weight changes Vital Signs Vital Signs Vital Signs: 09/01/24 12:54 09/01/24 12:54 09/01/24 13:28 Temperature 97.2 F L 97.2 F L Temperature Source Temporal Pulse Rate 65 65 Respiratory Rate 14 14 Respiratory Pattern Normal Blood Pressure 130/96 H 130/96 H Blood Pressure Mean 107 Blood Pressure Source Monitor Blood Pressure Position Sitting Blood Pressure Location Left Arm Pulse Ox 99 99 Oxygen Delivery Method Room Air Room Air Weight Weight: 207 lb 3.752 oz Body Mass Index (BMI) 28.0 Physical Exam Const alert, oriented x3, no apparent distress and healthy appearing General Appearance: cooperative GI normal to inspection, nondistended, normoactive bowel sounds, soft to palpation, non-tender and non-distended Percussion: normal to percussion Rectal Exam: deferred Assessment & Plan Assessment/Plan (1) Abdominal pain, acute, epigastric: (2) S/P ERCP: (3) S/P laparoscopic cholecystectomy: PLAN: Assessment and Plan Assessment and Plan (1) S/P laparoscopic cholecystectomy: Status: Acute Plan: This is a 54 yo male pt here today for hospital f/u after cholecystectomy and ERCP for gallstone pancreatitis. He has been doing well but continues to have some RUQ pain. He did f/u with surgery this morning and they were not concerned regarding this. He will need his pancreatic stent removed as it is present on the KUB . Also ordred CMP to check the liver enzymes to ensure they continue downtrending.
--- NOTE | 2024-09-01 14:15 | RAD_ITS ---
PROCEDURE: ERCP/fluoroscopy use. REASON FOR EXAM: ERCP. Abnormal CT scan. TECHNIQUE: Four intraoperative spot images were obtained during ERCP. COMPARISON: 05/12/2024 FINDINGS: Four intraoperative spot images were obtained during ERCP. 76.8 seconds fluoroscopic time utilized. There is opacification of the common duct. No gross dilation or persistent filling defect of the common duct is demonstrated. No extrinsic mass effect is demonstrated. The distal common duct appears to taper normally. RAD/ERCP Biliary/Pancreas IMPRESSION: Unremarkable ERCP images. Documentation of fluoroscopy use. Please see the op erative note for details. Reading Location: [facility]
--- NOTE | 2024-09-01 14:48 | OP.ERCP_ITS ---
Patient Name: Deuce Moore Procedure Date: 09/01/2024 1:41 PM Date of : 1970 Age: 54 Procedure: ERCP Indications: Stent removal, Pancreatic stent removal Providers: Damir Lazo DO Referring MD: Damir Lazo DO Medicines: Monitored Anesthesia Care Patient Profile: This is a 54 year old male. Refer to note in patient chart for documentation of history and physical. Patient has symptoms of acute right upper quadrant abdominal pain. Complications: No immediate complications. Procedure: Pre-Anesthesia Assessment: - Prior to the procedure, a History and Physical was performed, and patient medications and allergies were reviewed. The patient is competent. The risks and benefits of the procedure and the sedation options and risks were discussed with the patient. All questions were answered and informed consent was obtained. Patient identification and proposed procedure were verified by the physician in the pre-procedure area. Mental Status Examination: alert and oriented. Airway Examination: normal oropharyngeal airway and neck mobility. Respiratory Examination: clear to auscultation. CV Examination: normal. ASA Grade Assessment: II - A patient with mild systemic disease. After reviewing the risks and benefits, the patient was deemed in satisfactory condition to undergo the procedure. The anesthesia plan was to use monitored anesthesia care (MAC). Immediately prior to administration of medications, the patient was re-assessed for adequacy to receive sedatives. The heart rate, respiratory rate, oxygen saturations, blood pressure, adequacy of pulmonary ventilation, and response to care were monitored throughout the procedure. The physical status of the patient was re-assessed after the procedure. After obtaining informed consent, the scope was passed under direct vision. Throughout the procedure, the patient's blood pressure, pulse, and oxygen saturations were monitored continuously. The Duodenoscope was introduced through the mouth, and advanced to the duodenum and used to inject contrast into the bile duct and ventral pancreatic duct. The ERCP was accomplished without difficulty. The patient tolerated the procedure well. Scope In: 2:21:00 PM Scope Out: 2:34:08 PM Total Procedure Duration Time 0 hours 13 minutes 8 seconds Findings: A pancreatic stent was visible on the silk screener film. The esophagus was successfully intubated under direct vision. The scope was advanced to a normal major papilla in the descending duodenum without detailed examination of the pharynx, larynx and associated structures, and upper GI tract. The upper GI tract was grossly normal. The bile duct was deeply cannulated with the short-nosed traction sphincterotome. Contrast was injected. I personally interpreted the bile duct images. There was brisk flow of contrast through the ducts. Image quality was excellent. Contrast extended to the entire biliary tree. Opacification of the entire biliary tree except for the cystic duct and gallbladder, entire biliary tree except for the gallbladder, common bile duct, left and right hepatic ducts and all intrahepatic branches and entire biliary tree was successful. The maximum diameter of the ducts was 8 mm. The main bile duct contained a single localized stenosis 6 mm in length. The main bile duct was mildly dilated, with a stone causing an obstruction. The largest diameter was 9 mm. A long 0.025 inch Jagwire passed successfully into the right intrahepatic branches. A 5 mm biliary sphincterotomy was made with a traction (standard) sphincterotome using ERBE electrocautery. There was no post-sphincterotomy bleeding. The biliary tree was swept with a 12 mm balloon starting at the upper third of the main bile duct, middle third of the main bile duct, lower third of the main duct, bifurcation and right intrahepatic duct(s). Sludge was swept from the duct. All stones were removed. The ventral pancreatic duct was deeply cannulated with the short-nosed traction sphincterotome. Contrast was injected. Opacification of the entire pancreatic ductal system was successful. The maximum diameter of the ducts was 3 mm. The entire opacified area was normal. A long 0.025 inch Jagwire was passed into the ventral pancreatic duct. A 5 mm ventral pancreatic sphincterotomy was made with a traction (standard) sphincterotome using ERBE electrocautery. There was no post-sphincterotomy bleeding. To find object(s) the ventral pancreatic duct was swept with a 6 mm balloon starting at the pancreatic duct in the body of the pancreas. Debris was swept from the duct. One stent was removed from the pancreatic duct using a snare and sent for cytology. The stent was found to be partially occluded via the water column test. Impression: - A single localized biliary stricture was found in the entire main bile duct. - The entire main bile duct was mildly dilated, with a stone causing an obstruction. - Choledocholithiasis was found. Complete removal was accomplished by biliary sphincterotomy and balloon extraction. - A biliary sphincterotomy was performed. - The biliary tree was swept. - A pancreatic sphincterotomy was performed. - The ventral pancreatic duct was swept and debris was found. - One stent was removed from the pancreatic duct. Procedure Code(s): --- Professional --- 39898, Endoscopic retrograde cholangiopancreatography (ERCP); with removal of foreign body(s) or stent(s) from biliary/pancreatic duct(s) 94817, Endoscopic retrograde cholangiopancreatography (ERCP); with removal of calculi/debris from biliary/pancreatic duct(s) 00514, Endoscopic retrograde cholangiopancreatography (ERCP); with sphincterotomy/papillotomy 11209, Endoscopic retrograde cholangiopancreatography (ERCP); with sphincterotomy/papillotomy 63196, 26, Endoscopic catheterization of the biliary ductal system, radiological supervision and interpretation CPT copyright 2021 [employer]. All rights reserved. The codes documented in this report are preliminary and upon supervisor fishing review may be revised to meet current compliance requirements. Damir Lazo DO 09/01/2024 2:47:14 PM This report has been signed electronically. Number of Addenda: 0 Note Initiated On: 09/01/2024 1:41 PM
--- NOTE | 2024-09-01 14:48 | OP.CCLET_ITS ---
09/01/2024 Ifeanyi Laurent [address] [place] [address] Re : ERCP procedure for Deuce Moore Dear Dr. Laurent This procedure was performed on Sunday, September 01, 2024. My impressions and recommendations are as follows: Impressions : - A single localized biliary stricture was found in the entire main bile duct. - The entire main bile duct was mildly dilated, with a stone causing an obstruction. - Choledocholithiasis was found. Complete removal was accomplished by biliary sphincterotomy and balloon extraction. - A biliary sphincterotomy was performed. - The biliary tree was swept. - A pancreatic sphincterotomy was performed. - The ventral pancreatic duct was swept and debris was found. - One stent was removed from the pancreatic duct. Recommendations : My findings are described in the full procedure note, which is enclosed. If I can be of further assistance, please feel free to contact me at . Sincerely, Damir Lazo, 09/01/2024 2:47:14 PM This report has been signed electronically.
--- NOTE | 2024-09-01 14:56 | PCM.POST.ANE ---
Anesthesia: Postop Eval I Current Vital Signs Temperature: 97.3 F Pulse Rate: 67 Blood Pressure: 127/92 Respiratory Rate: 18 Pulse Ox: 97 Oxygen Delivery Method: Room Air Assessment Airway patent: Yes Spontaneous unlabored respirations: Yes Mental status: Awake nausea: No Vomiting: No Anesthesia Complication: No Fluid Hydration Crystalloid volume administer (ml): 900 Total IV fluid infused: 900 Progress Note Anesthesia document: Postop Eval 1 completed: Yes
--- NOTE | 2024-09-01 15:50 | POSTOPAN2_ITS ---
Anesthesia Postop Eval I Sum Postop Eval Completion status Anesthesia document: Postop Eval 1 completed: Yes Anesthesia Postop Eval I Summary Anesthesia Postop Eval I Summary: Anesthesia Postop Eval I: Assessment Summary Airway patent Yes 09/01/24 14:56 [email or web address] Spontaneous unlabored Yes 09/01/24 14:56 [email or web address] respirations Mental status Awake 09/01/24 14:56 [email or web address] nausea No 09/01/24 14:56 [email or web address] Vomiting No 09/01/24 14:56 [email or web address] Anesthesia Postop Eval I: Fluid Summary Crystalloid volume administer 900 09/01/24 14:56 [email or web address] (ml) Colloids volume administered ( ml) Blood Product volume administered (ml) Total IV fluid infused 900 09/01/24 14:56 [email or web address] Anesthesia Postop Eval I: Summary Notes Anesthesia Complication No 09/01/24 14:56 [email or web address] Anesthesia Complication Comment: Post-operative progress note Anesthesia: Postop Eval II Evaluation Mental status: Awake and Calm Pain Level: 4 nausea: No Vomiting: No Complications Anesthesia Complication: No
--- NOTE | 2024-09-01 15:50 | PCM.POSTANE2 ---
Anesthesia Postop Eval I Sum Postop Eval Completion status Anesthesia document: Postop Eval 1 completed: Yes Anesthesia Postop Eval I Summary Anesthesia Postop Eval I Summary: Anesthesia Postop Eval I: Assessment Summary Airway patent Yes 09/01/24 14:56 [email or web address] Spontaneous unlabored Yes 09/01/24 14:56 [email or web address] [email or web address] respirations Mental status Awake 09/01/24 14:56 [email or web address] nausea No 09/01/24 14:56 [email or web address] Vomiting No 09/01/24 14:56 [email or web address] Anesthesia Postop Eval I: Fluid Summary Crystalloid volume administer 900 09/01/24 14:56 [email or web address] (ml) Colloids volume administered ( ml) Blood Product volume administered (ml) Total IV fluid infused 900 09/01/24 14:56 [email or web address] Anesthesia Postop Eval I: Summary Notes Anesthesia Complication No 09/01/24 14:56 [email or web address] Anesthesia Complication Comment: Post-operative progress note Anesthesia: Postop Eval II Evaluation Mental status: Awake and Calm Pain Level: 4 nausea: No Vomiting: No Complications Anesthesia Complication: No
== END 2024-09-01 16:33 | disposition home or self-care (01) ==
LOC: EN 12:36 → AC 12:38
PROVIDERS: PCP Family Medicine; Referring Provider Internal Medicine Gastroenterology; Visit Provider Internal Medicine Gastroenterology
PROC: (CPT 43260; principal; 2024-09-01 13:10)
DX: K80.51 Calculus of bile duct without cholangitis or cholecystitis with obstruction (principal); Z90.49 Acquired absence of other specified parts of digestive tract; Z87.891 Personal history of nicotine dependence
CPT/HCPCS: 43275; 43262; 43264; 74330; 76000; 88108; 88305; 88307; 88312; 88313; 93005; A4216; J2405